=== PATIENT | female | born 1965 | race Caucasian/White ===

== ENCOUNTER 2021-07-13 14:02 | Outpatient (REF) | payer OTHER, SELFPAY ==
--- NOTE | ~2021-07-13 | XR_ITS ---
EXAMINATION: XR KNEE, LEFT CLINICAL INFORMATION: Left knee pain. COMPARISON: None TECHNIQUE: AP, lateral, and sunrise views of the left knee. FINDINGS: Mild medial compartment joint space narrowing. Tiny medial and patellofemoral compartment marginal osteophytes. No osseous erosion. No abnormal soft tissue calcification. No significant joint effusion. XR/XR knee LT 3V IMPRESSION: Mild medial and patellofemoral compartment osteoarthritis.
== END 2021-07-13 14:03 | disposition home or self-care (01) ==
LOC: HO.HMGCX 14:02
PROVIDERS: PCP Internal Medicine; Visit Provider Physician Assistant Medical
DX: M25.562 Pain in left knee (principal)
CPT/HCPCS: 73562

== ENCOUNTER 2022-01-19 06:51 | Outpatient (REF) | payer OTHER, SELFPAY ==
[2022-01-19 07:03] LABS: MANUAL DIFF FLAG NO
[2022-01-19 07:32] LABS: Basophils Absolute Auto 0.1 X10*3/uL (0.0-0.2); Basophils Percent Auto 0.7 % (0-2); Eosinophils Absolute Auto 0.3 X10*3/uL (0.0-0.4); Eosinophils Percent Auto 3.7 % (0-4); Hemoglobin 13.1 g/dl (12.0-16.0); Imm Gran Abs Auto 0.01 X10*3/uL (0.00-0.03); Imm Gran Pct Auto 0.1 % (0.0-0.4); Lymphocytes Absolute Auto 2.6 X10*3/uL (1.2-4.9); Lymphocytes Percent Auto 36.4 % (20-40); Mean Corpuscular Hemoglobin 28.4 pg (27.0-33.0); Mean Corpuscular Volume 88.7 fL (80.0-98.0); Mean Platelet Volume 8.9 fL (9.4-12.3); Monocytes Absolute Auto 0.8 X10*3/uL (0.1-1.2); Neutrophils Absolute Auto 3.4 x10*3/uL (2.0-8.3); Neutrophils Percent Auto 48.1 % (45-73); Platelet Count 288 X10*3/uL (160-400); Red Blood Count 4.62 X10*6/uL (4.20-5.50); Red Cell Distribution Width 13.4 % (11.0-16.0); White Blood Count 7.1 X10*3/uL (4.8-10.8)
[2022-01-19 08:01] LABS: Alanine Aminotransferase 39 U/L (0-31); Albumin Level 4.4 g/dL (3.5-5.0); Alkaline Phosphatase 65 U/L (39-117); Anion Gap 15 (12-20); Aspartate Amino Transferase 30 U/L (5-31); Bilirubin Total 0.5 mg/dL (0.0-1.0); Blood Urea Nitrogen 15 mg/dL (9-16); C Reactive Protein 1.02 mg/dL (< or = 0.50); Carbon Dioxide 27 mmol/L (22-29); Chloride 104 mmol/L (96-108); Cholesterol 177 mg/dL; Estimated Glomerular Filt Rate > 60; Glucose Fasting 101 mg/dL (60-99); HDL Cholesterol 39 mg/dL; LDL Cholesterol Calculated 116 mg/dl; Potassium 4.6 mmol/L (3.3-5.1); Sodium 141 mmol/L (135-145); Total Protein 7.4 g/dL (6.5-8.0); Triglycerides 112 mg/dL
[2022-01-19 08:10] LABS: Appearance Urine CLEAR; Color Urine YELLOW; Glucose Urine UA NEG (NEG); Leukocyte Esterase Urine TRACE (NEG); Nitrite Urine NEG (NEG); PH 5.5 (5.0-8.0); Specific Gravity - Urine >= 1.030 (1.005-1.025); UACC Culture Trigger YES; Urine Blood NEG (NEG); Urine Ketones 5 MG/DL (NEG); Urine Protein NEG (NEG-TRACE)
[2022-01-19 08:10] LABS: Rheumatoid Factor < 15.0 IU/mL (<15.0)
[2022-01-19 08:16] LABS: Erythrocyte Sedimentation Rate 14 MM/HR (0-20)
[2022-01-19 08:23] LABS: TSH reflex Free T4 1.72 uIU/mL (0.32-4.0); Vitamin D 25-OH Total 19.6 ng/mL (>30)
[2022-01-19 08:32] LABS: Squamous Epithelial Cell Urine 2+ /LPF
[2022-01-19 08:34] LABS: Bacteria Urine TRACE /LPF; RBC Urine 0 /HPF (0)
== END 2022-01-19 06:52 | disposition home or self-care (01) ==
LOC: HO.LAB 06:51
PROVIDERS: PCP Internal Medicine; Visit Provider Internal Medicine
DX: Z00.00 Encounter for general adult medical examination without abnormal findings (principal); E66.01 Morbid (severe) obesity due to excess calories; Z68.42 Body mass index [BMI] 45.0-49.9, adult; M17.12 Unilateral primary osteoarthritis, left knee; M25.50 Pain in unspecified joint; M79.7 Fibromyalgia; E55.9 Vitamin D deficiency, unspecified
CPT/HCPCS: 36415; 80053; 80061; 81001; 82306; 84443; 85025; 85652; 86140; 86431; 87086; 87147

== ENCOUNTER 2022-03-20 07:00 | Outpatient (RCR) | payer OTHER, SELFPAY ==
[2022-03-01 07:09] VITALS: BP 141/70; PULSE 72; O2SAT 98
== END 2022-04-26 08:22 | disposition home or self-care (01) ==
LOC: HO.PT 07:00
PROVIDERS: PCP Internal Medicine; Visit Provider Orthopaedic Surgery
DX: M17.12 Unilateral primary osteoarthritis, left knee (principal)
CPT/HCPCS: 97110; 97140; 97161

== ENCOUNTER 2023-03-22 04:20 | Emergency (ER) | payer OTHER, SELFPAY ==
[2023-03-22 04:35] VITALS: BP 155/71; PULSE 78; RESP 16; TEMP 36.6; O2SAT 99; BMI 45.6
--- NOTE | 2023-03-22 04:44 | PC.NURSE ---
patient came in the ER stated she was taking antibiotics for the right ear pain patient vitals are stable at this time patient stated the medication did not help patient is waiting to be seen by the doctor safety will be maintained
--- NOTE | 2023-03-22 04:53 | ED_ITS ---
HPI - Ear Problem General Chief complaint: Ear Problems Stated complaint: ear infection? swollen ear and neck area Time Seen by Provider: 03/22/23 04:53 Source: patient Mode of arrival: ambulatory Limitations: no limitations History of Present Illness HPI Narrative: Patient with history of psoriasis noted redness of the right ear pinna for 3 days seen the PCP was started on amoxicillin comes as pain is more and now swelling increased the lymph nodes no fever no chills no history of similar infection in the past Related Data Previous Rx's Medication Instructions Recorded amoxicillin 500 mg tablet 500 mg PO Q8H 7 days #21 tabs 03/20/23 mupirocin 2 % topical ointment 1 appl topical BID 15 days #15 03/20/23 grams ciprofloxacin HCl 500 mg tablet 500 mg PO BID #20 tabs 03/22/23 (Cipro) doxycycline hyclate 100 mg tablet 100 mg PO BID #20 tabs 03/22/23 ibuprofen 600 mg tablet 600 mg PO Q6H PRN fever or pain 03/22/23 #30 tabs Allergies Allergy/AdvReac Type Severity Reaction Status Date / Time Adhesive Bandage AdvReac Unknown STERI Uncoded 03/20/23 14:04 STRIPS TOPICAL REACTION Review of Systems Review of Systems: Yes all other systems are reviewed and are negative PMFSH Past Medical History Medical History Degenerative joint disease of left knee Insomnia Morbid obesity with BMI of 45.0-49.9, adult Psoriasis Surgical History History of S/P tonsillectomy and adenoidectomy Family History Family History Mother COPD (chronic obstructive pulmonary disease) High blood pressure Father Alcoholic Other Substance abuse Social History Social History Housing: House Alcohol intake: never Patient Tobacco Use Status: Never used Tobacco Smoked in Last 30 Days: No e-Cigarette/Vaping Use: Never Used Second Hand Smoke Exposure: No Use of substances other than those prescribed or required for medical reasons: No Advance Directives: No Advance Directives Information Provided: Yes Patient : No service: No Current occupational status: employed Cognitive needs: No Hearing needs: No Vision needs: Yes Physical Exam Vital Signs: Vital Signs: Last Vital Signs Temp 97.9 F 03/22/23 04:35 Pulse 78 03/22/23 04:35 Resp 16 03/22/23 04:35 BP 155/71 H 03/22/23 04:35 Pulse Ox 99 03/22/23 04:35 O2 Del Method Room Air 03/22/23 04:35 BMI result Body Mass Index 45.6 Appearance: Alert. Oriented X3. No acute distress. ENT: Pharynx normal. Oral Mucosa moist cellulitic right pinna no open wound Neck: Normal inspection. Neck supple. Upper cervical lymph nodes present on the right side CVS: Normal heart rate and rhythm. Pulses normal. Respiratory: No respiratory distress. Equal air entry bilateral, Abdomen: Soft and nontender. Bowel sounds are present, Skin: Skin warm and dry. Normal skin color. Normal skin turgor. Extremities: No lower extremity edema. No calf tenderness Neuro: Oriented X 3. Medications Administered Discontinued Medications Generic Name Dose Route Start Last Admin Trade Name Freq PRN Reason Stop Dose Admin Piperacillin Sod/Tazobactam 50 mls @ 100 mls/hr 03/22/23 04:58 03/22/23 05:50 Sod 3.375 gm/ Sodium Chloride IV 03/22/23 05:27 Infused ONCE ONE Infusion Medical Decision Making Medical Decision Making [facility] Narrative: Patient with perichondritis IV Zosyn was given likely Pseudomonas infection open wound will discharge patient home on Cipro Lab Data [facility] Lab Attestation statement: I reviewed the patient's lab results. 03/22/23 05:14 03/22/23 05:14 Labs: Lab Results 03/22/23 03/22/23 Range/Units 05:14 05:14 WBC 10.6 (4.8-10.8) X10*3/uL RBC 4.56 (4.20-5.50) X10*6/uL Hgb 12.8 (12.0-16.0) g/dl Hct 39.8 (37.0-47.0) % MCV 87.3 (80.0-98.0) fL MCH 28.1 (27.0-33.0) pg MCHC 32.2 (31.0-35.0) g/dl RDW 13.2 (11.0-16.0) % Plt Count 285 (160-400) X10*3/uL MPV 8.4 L (9.4-12.3) fL Immature Gran % (Auto) 0.5 H (0.0-0.4) % Neut % (Auto) 59.2 (45-73) % Lymph % (Auto) 26.4 (20-40) % [place] % (Auto) 11.9 H (2-11) % Eos % (Auto) 1.6 (0-4) % Baso % (Auto) 0.4 (0-2) % Lymph # (Auto) 2.8 (1.2-4.9) X10*3/uL [place] # (Auto) 1.3 H (0.1-1.2) X10*3/uL Eos # (Auto) 0.2 (0.0-0.4) X10*3/uL Baso # (Auto) 0.0 (0.0-0.2) X10*3/uL Abs Immat Gran (auto) 0.05 H (0.00-0.03) X10*3/uL Absolute Neuts (auto) 6.3 (2.0-8.3) x10*3/uL Absolute Nucleated RBC 0.000 (0.0-0.012) X10*3/uL Nucleated RBC % (auto) 0.0 (0.0-0.2) /100WBC Sodium 141 (135-145) mmol/L Potassium 4.5 (3.3-5.1) mmol/L Chloride 105 (96-108) mmol/L Carbon Dioxide 27 (22-29) mmol/L Anion Gap 14 (12-20) BUN 14 (9-16) mg/dL Creatinine 0.76 (0.5-1.4) mg/dL Estim Creat Clear Calc 125.0 Estimated GFR > 60 Random Glucose 96 (60-115) mg/dL Calcium 9.5 (8.4-10.2) mg/dL Discharge Plan Discharge Clinical Impression: Acute perichondritis of right external ear Patient Disposition: Home, Self-Care Instructions: Cellulitis (ED) Additional Instructions: You have infection of the skin of the right ear take antibiotic as prescribed Report to the ER if worsening of the redness or swelling and pain Prescriptions: New ciprofloxacin HCl [Cipro] 500 mg tablet 500 mg PO BID Qty: 20 0RF doxycycline hyclate 100 mg tablet 100 mg PO BID Qty: 20 0RF ibuprofen 600 mg tablet 600 mg PO Q6H PRN (Reason: fever or pain) Qty: 30 0RF No Action amoxicillin 500 mg tablet 500 mg PO Q8H 7 Days Qty: 21 0RF mupirocin 2 % ointment 1 appl topical BID 15 Days Qty: 15 0RF Interventions: ED Discharge Assessment Last Done: 03/22/23 06:08
[2023-03-22 05:18] LABS: Basophils Percent Auto 0.4 % (0-2); Eosinophils Absolute Auto 0.2 X10*3/uL (0.0-0.4); Eosinophils Percent Auto 1.6 % (0-4); Hematocrit 39.8 % (37.0-47.0); Hemoglobin 12.8 g/dl (12.0-16.0); Imm Gran Abs Auto 0.05 X10*3/uL (0.00-0.03); Imm Gran Pct Auto 0.5 % (0.0-0.4); Lymphocytes Absolute Auto 2.8 X10*3/uL (1.2-4.9); Lymphocytes Percent Auto 26.4 % (20-40); MANUAL DIFF FLAG NO; Mean Corpuscular HGB Conc 32.2 g/dl (31.0-35.0); Mean Corpuscular Hemoglobin 28.1 pg (27.0-33.0); Mean Corpuscular Volume 87.3 fL (80.0-98.0); Mean Platelet Volume 8.4 fL (9.4-12.3); Monocytes Absolute Auto 1.3 X10*3/uL (0.1-1.2); Monocytes Percent Auto 11.9 % (2-11); Neutrophils Absolute Auto 6.3 x10*3/uL (2.0-8.3); Neutrophils Percent Auto 59.2 % (45-73); Platelet Count 285 X10*3/uL (160-400); Red Blood Count 4.56 X10*6/uL (4.20-5.50); Red Cell Distribution Width 13.2 % (11.0-16.0); White Blood Count 10.6 X10*3/uL (4.8-10.8)
[2023-03-22] MEDS: Piperacillin Sodium/Tazobactam 3.375 GM in 0.9 % Sodium Chloride 50 ML IV (05:19)
[2023-03-22 05:29] LABS: Anion Gap 14 (12-20); Blood Urea Nitrogen 14 mg/dL (9-16); Calcium 9.5 mg/dL (8.4-10.2); Carbon Dioxide 27 mmol/L (22-29); Chloride 105 mmol/L (96-108); Estimated Glomerular Filt Rate > 60; Glucose Random 96 mg/dL (60-115); Potassium 4.5 mmol/L (3.3-5.1); Sodium 141 mmol/L (135-145)
--- NOTE | 2023-03-22 05:29 | PC.NURSE ---
patient received antibiotics by IV patient will continue to be monitored for safety
== END 2023-03-22 06:11 | disposition home or self-care (01) ==
PROVIDERS: Emergency Provider Internal Medicine
DX: H61.011 Acute perichondritis of right external ear (principal); Z79.899 Other long term (current) drug therapy
CPT/HCPCS: 36415; 80048; 85025; 96365; 99284; J2543

== ENCOUNTER 2023-03-26 07:36 | Outpatient (REF) | payer OTHER, SELFPAY ==
[2023-03-26 10:31] LABS: Hematocrit 41.7 % (37.0-47.0); Mean Corpuscular HGB Conc 31.2 g/dl (31.0-35.0); Mean Corpuscular Hemoglobin 27.5 pg (27.0-33.0); Mean Corpuscular Volume 88.3 fL (80.0-98.0); Mean Platelet Volume 8.9 fL (9.4-12.3); Platelet Count 340 X10*3/uL (160-400); Red Blood Count 4.72 X10*6/uL (4.20-5.50); Red Cell Distribution Width 13.2 % (11.0-16.0); White Blood Count 8.2 X10*3/uL (4.8-10.8)
[2023-03-26 10:44] LABS: Alanine Aminotransferase 23 U/L (0-31); Alkaline Phosphatase 60 U/L (39-117); Anion Gap 15 (12-20); Aspartate Amino Transferase 23 U/L (5-31); Bilirubin Total 0.5 mg/dL (0.0-1.0); Blood Urea Nitrogen 18 mg/dL (9-16); Calcium 10.2 mg/dL (8.4-10.2); Carbon Dioxide 27 mmol/L (22-29); Chloride 105 mmol/L (96-108); Cholesterol 182 mg/dL; Estimated Glomerular Filt Rate > 60; Glucose Fasting 94 mg/dL (60-99); HDL Cholesterol 42 mg/dL; LDL Cholesterol Calculated 117 mg/dl; Potassium 4.6 mmol/L (3.3-5.1); Sodium 142 mmol/L (135-145); Total Protein 7.5 g/dL (6.5-8.0); Triglycerides 115 mg/dL
== END 2023-03-26 07:37 | disposition home or self-care (01) ==
LOC: HO.10HDL 07:36
PROVIDERS: PCP Internal Medicine; Visit Provider Physician Assistant
DX: Z13.1 Encounter for screening for diabetes mellitus (principal); E78.9 Disorder of lipoprotein metabolism, unspecified
CPT/HCPCS: 36415; 80053; 80061; 85027

== ENCOUNTER 2024-01-09 09:10 | Outpatient (AMB) | payer OTHER, SELFPAY ==
--- NOTE | 2024-01-09 09:19 | A.OFFPC_ITS ---
Vital Signs 01/09/24 09:20 Height 5 ft 9 in Weight 255 lb 4 oz BMI 37.7 BP 120/74 Blood Pressure Location Lt brachial Position Sitting Pulse 70 Pulse Source Pulse Oximeter Pulse Oximetry (%) 100 Oxygen Delivery Method Room Air Intake Visit Reasons: Annual PE Intake Note: Patient is here today for a physical. Reproduction Production Manager Required: No Stripper Preliminary: Not Required per policy Accompanied by: Self / Same As Patient Allergies Adhesive Bandage Adverse Reaction (Unknown, Uncoded 01/09/24 09:45) STERI STRIPS TOPICAL REACTION Medication List - Last Reconciled 01/09/24 by Pedro Luis Field MD semaglutide 0.5 mg subcut QWEEK Tobacco use date assessed: 01/09/24 Dental Screening Dental Screen Date: 01/09/24 Did you have a dental visit in the last 12 months?: Yes Did you have a dental problem in the last 6 months where you did not have access to dental care?: No Was dental information given to patient?: Patient has dentist HPI Annual PE HPI Details Patient comes in today for her annual physical examination States that she currently feels okay She denies any headaches or dizziness Denies any chest pains, no SOB No nausea/vomiting, no abdominal pain No change in bowel habits noted Denies any acute urinary symptoms Patient has lost a lot of weight since her last physical exam about a year ago States that she has been going to [facility] for Functional Medicine at [facility] and they started her on Semaglutide SQ injection once a week to help her lose weight States that her previous left knee pain and swelling have subsided / improved a lot since she lost weight and at this time, she does not feel that she needs to go ahead with the joint replacement surgery that orthopedics was planning for last year She is up-to-date with her annual gynecology exam - last had it done in September 2023 and she goes to her mobile application architect at [facility] in [place] She had her mammogram last done at [facility] in August 2023 Had her colonoscopy last done in [address] Lloyd and states that she was recently contacted by Dr. Lloyd' office to schedule her appointment as she is due for her repeat colonoscopy [facility] Medical History (Updated 01/09/24 @ 10:48 by Pedro Luis Field MD) Obesity (BMI 30-39.9) Insomnia Psoriasis Degenerative joint disease of left knee Morbid obesity with BMI of 45.0-49.9, adult Surgical History (Updated 01/09/24 @ 09:59 by Pedro Luis Field MD) History of colonoscopy History of S/P tonsillectomy and adenoidectomy Family History Mother COPD (chronic obstructive pulmonary disease) High blood pressure Father Alcoholic Other Substance abuse Social History Housing: House Alcohol intake: never Patient Tobacco Use Status: Never used Tobacco e-Cigarette/Vaping Use: Never Used Second Hand Smoke Exposure: No service: No Current occupational status: employed Cognitive needs: No Hearing needs: No Vision needs: Yes (Glasses) Questionnaire PHQ-9 Over the last 2 weeks, how often have you been bothered by any of the following problems? 1. Little interest or pleasure in doing things: not at all 2. Feeling down, depressed, or hopeless: not at all 3. Trouble falling or staying asleep, or sleeping too much: not at all 4. Feeling tired or having little energy: not at all 5. Poor appetite or overeating: not at all 6. Feeling bad about yourself - or that you are a failure or have let yourself or your family down: not at all 7. Trouble concentrating on things, such as reading the newspaper or watching television: not at all 8. Moving or speaking so slowly that other people could have noticed. Or the opposite - being so fidgety or restless that you have been moving around a lot more than usual: not at all 9. Thoughts that you would be better off or of hurting yourself in some way: not at all Total score: 0 Depression Screening Interpretation: Negative Depression Screening Done: Yes 26753 - PHQ-9 Billing: Yes Source: Developed by Drs. Benson Wise, Hodan Malhotra, Haider Maria and colleagues, with an educational sharon from [employer]. Thrive Questionnaire Date Thrive assessed: 01/09/24 I am a: Patient What is your living situation today?: I have a steady place to live Within the past 12 months, did the food you bought not last and you didn't have the money to get more?: Never true Within the past 12 months, did you worry whether your food would run out before you got money to buy more?: Never true Do you have trouble paying for medicines?: No Do you have trouble getting transportation to medical appointments?: No Do you have trouble paying your heating and electricity bill?: No Do you have trouble taking care of your child, family member or friend?: No Do you have trouble with day-to-day activities such as bathing, preparing meals, shopping, managing finances, etc.?: No Are you currently unemployed and looking for a job?: No Are you interested in more education?: No Currently or been in a relationship where the following occur: no concerns reported THRIVE Score: 0 AUDIT C Alcohol Use Questionnaire (AUDIT-C) 1. How often do you have a drink containing alcohol?: Never 3. How often do you have six or more drinks on one occasion?: Never Total Score: 0 Score Reviewed/Action Taken: Yes CHICHI-7 AMB Questionnaire CHICHI-7 Date CHICHI - 7 assessed: 01/09/24 Feeling nervous, anxious, or on edge: 0 = Not at all Not being able to stop or control worryin = Not at all Worrying too much about different things: 0 = Not at all Trouble relaxin = Not at all Being so restless that it is hard to sit still: 0 = Not at all Becoming easily annoyed or irritable: 0 = Not at all Feeling afraid as if something awful might happen: 0 = Not at all Total CHICHI-7 score (0-4 normal; 5-9 mild; 10-14 moderate; 15-21 severe): 0 Source: Developed by Drs. Benson Wise, Hodan Malhotra, Haider Maria and colleagues, with an educational sharon from [employer]. Review of Systems Const Denies chills, Denies fatigue, Denies fever(s), Denies headache(s) and Denies malaise Eyes Denies blurry vision, Denies change in vision, Denies irritation and Denies itchy eyes ENT Denies dysphagia, Denies dizziness, Denies otalgia, Denies headache(s), Denies nasal congestion, Denies neck pain, Denies odynophagia, Denies sinus pain and Denies sore throat Card Denies chest pain, Denies rapid heart rate, Denies irregular heart rhythm, Denies palpitations and Denies dyspnea Resp Denies chest congestion, Denies cough, Denies dyspnea and Denies wheezing GI Denies abdominal pain, Denies bloating, Reports constipation (on and off - takes OTC stool softener when needed), Denies dysphagia, Denies heartburn, Denies diarrhea, Denies nausea, Denies odynophagia and Denies vomiting Denies hematuria, Denies urinary frequency, Denies dysuria, Denies urinary incontinence and Denies urinary urgency Musc Denies back pain, Reports arthralgias (left knee), Denies joint swelling, Denies muscle weakness and Denies neck pain Skin/Breast Denies breast pain, Denies breast mass, Denies change in pigmentation, Denies lesions, Denies rash and Denies unusual bruising Neuro Denies dizziness, Denies headache(s) and Denies paresthesias Psych Denies anxiety and Denies depression Endo Denies fatigue and Denies palpitations Orion/Lymph Denies easy bruising Aller/Immun Denies itchy eyes and Denies wheezing Physical exam (Primary Care) Vital Signs: Last Vital Signs Pulse 70 01/09/24 09:20 BP 120/74 01/09/24 09:20 Pulse Ox 100 01/09/24 09:20 Oxygen Delivery Method Room Air 01/09/24 09:20 BMI result Body Mass Index 37.7 Tobacco/Smoking Status: Tobacco use Status Tobacco use date assessed 01/09/24 01/09/24 09:26 Patient Tobacco Use Status Never used Tobacco 01/09/24 09:26 e-Cigarette/Vaping Use Never Used 01/09/24 09:26 PHQ-9: PHQ-9 Score PHQ-9: Total score 0 01/09/24 09:57 Depression Screening Interpretation: Negative Thrive Assessment: Date of Thrive Assessment Date Thrive assessed 01/09/24 01/09/24 09:26 Currently or been in a relationship where the following occur: no concerns reported Const General: no acute distress, alert and awake Orientation/consciousness: patient oriented x3 HENMT Head: Yes normocephalic and Yes atraumatic Ears: external ears normal, TM's normal bilaterally and EAC's normal General nose exam: No nasal discharge present Face and sinus: Yes normal facial exam and Yes sinuses nontender Teeth and gingiva: dentition normal Throat: Yes posterior oropharynx normal and Yes tonsils normal (no TP laith estion) Eyes Eyelids: Yes eyelids normal Conjunctivae: conjunctivae normal Pupils: Equal, round and reactive pupils present EOM: EOMs intact bilaterally Neck Neck: Yes no lymphadenopathy and Yes supple Thyroid: Thyroid normal Resp Auscultation: clear to auscultation bilaterally, no rales and no wheezes Cardio Rate: regular rate Rhythm: regular rhythm Heart sounds: no murmurs GI Palpation (GI): Soft to palpation, nontender and No hepatosplenomegaly present Auscultation: normal bowel sounds General: Yes no CVA tenderness Back/Spine/Pelvis Back: no CVA tenderness Thoracic/Lumbar Spine: thoracic and lumbar spine normal to inspection Skin Lesions: no lesions Rashes: no rashes Neuro General: patient oriented x3, moves all extremities, no focal motor deficits and CN's II-XI intact bilaterally Cranial nerves: Yes Equal, round and reactive pupils present Cognition (Neuro): normal cognition Gait exam (Neuro): Normal gait present Extrem General: Yes no clubbing, cyanosis or edema Left lower extremity: knee Details: tenderness and normal ROM; no swelling Assessment and Plan Assessment & Plan (1) Annual physical exam: Code(s): Z00.00 - Encounter for general adult medical examination without abnormal findings Plan: Check labs She is currently up-to-date with her breast and cervical cancer screenings and is scheduled to see Dr. Lloyd in May 2024 for her repeat colonoscopy (2) Degenerative joint disease of left knee: Code(s): M17.12 - Unilateral primary osteoarthritis, left knee Qualifiers: Osteoarthritis type: unspecified Qualified Code(s): M17.12 - Unilateral primary osteoarthritis, left knee Plan: She was previously recommended by orthopedics to continue with conservative management She was getting viscosupplementation and cortisone injectison from orthopedics previously but she reports (+) significant reduction of her knee symptoms and pain with her weight loss over the past year and at this time, does not feel that she needs anything other than symptomatic and conservative Tx for now Follow up with orthopedics ([facility]) as scheduled (3) Elevated blood pressure reading in office without diagnosis of hypertension: Code(s): R03.0 - Elevated blood-pressure reading, without diagnosis of hypertension Plan: Reinforced low sodium diet Her blood pressure also appears to have improved significantly with her weight loss Patient is reminded to continue monitoring her blood pressure regularly (4) Psoriasis: Code(s): L40.9 - Psoriasis, unspecified Plan: Follow up with [facility] as scheduled Recalls being treated with Methotrexate, Humira and Otezla in the past but she is currently not on any Rx (5) Insomnia: Code(s): G47.00 - Insomnia, unspecified Qualifiers: Insomnia type: unspecified Qualified Code(s): G47.00 - Insomnia, unspecified Plan: Sleep hygiene reinforced States that she takes some OTC Benadryl PRN (6) Obesity (BMI 30-39.9): Code(s): E66.9 - Obesity, unspecified Plan: Reinforced diet/exercise as tolerated/lose weight She has been able to lose over 50 pounds since I saw her a year ago - states that she has been going to the [facility] for Functional Medicine at [facility] and they started her on Semaglutide SQ injection once a week to help her lose weight a few months ago and she is currently still on it Is requesting if possible for us to take over her Rx once she gets all of the details and information required - states that she will be using a compounding pharmacy somewhere here in [facility] and will try to get more information on this for us Plan Follow up in 6 months Orders: Orders Complete Blood Count Auto Diff Today D64.9 - Anemia, unspecified, Z00.00 - Encounter for general adult medical examination without abnormal findings Comprehensive Fellows. Panel Fast Today E78.00 - Pure hypercholesterolemia, unspecified, Z00.00 - Encounter for general adult medical examination without abnormal findings Lipid Panel Today E78.00 - Pure hypercholesterolemia, unspecified, Z00.00 - Encounter for general adult medical examination without abnormal findings TSH reflex Free T4 Today E78.00 - Pure hypercholesterolemia, unspecified, Z00.00 - Encounter for general adult medical examination without abnormal findings UA CC w/rflx Micro + Cult Today R30.0 - Dysuria, Z00.00 - Encounter for general adult medical examination without abnormal findings Vitamin D 25-OH Total Today E55.9 - Vitamin D deficiency, unspecified, Z00.00 - Encounter for general adult medical examination without abnormal findings Coding Level of Care Code Est Pt Prev Care [id number]([id number]) Diagnoses Annual physical exam Z00.00 Osteoarthritis of left knee, unspecified osteoarthritis type M17.12 Osteoarthritis type: unspecified Elevated blood pressure reading in office without diagnosis of hypertension R03.0 Psoriasis L40.9 Insomnia, unspecified type G47.00 Insomnia type: unspecified Obesity (BMI 30-39.9) E66.9
[2024-01-09 09:20] VITALS: BP 120/74; PULSE 70; O2SAT 100; BMI 37.7
== END 2024-01-09 10:10 | disposition home or self-care (01) ==
PROVIDERS: PCP Internal Medicine; Visit Provider Internal Medicine
DX: Z00.00 Encounter for general adult medical examination without abnormal findings (principal); M17.12 Unilateral primary osteoarthritis, left knee; R03.0 Elevated blood-pressure reading, without diagnosis of hypertension; L40.9 Psoriasis, unspecified; G47.00 Insomnia, unspecified
CPT/HCPCS: 99396

== ENCOUNTER 2024-01-10 08:39 | Outpatient (REF) | payer OTHER, SELFPAY ==
[2024-01-10 10:49] LABS: MANUAL DIFF FLAG NO
[2024-01-10 10:51] LABS: Basophils Absolute Auto 0.1 X10*3/uL (0.0-0.2); Basophils Percent Auto 0.7 % (0-2); Eosinophils Absolute Auto 0.2 X10*3/uL (0.0-0.4); Eosinophils Percent Auto 1.9 % (0-4); Hematocrit 41.1 % (37.0-47.0); Hemoglobin 13.2 g/dl (12.0-16.0); Imm Gran Abs Auto 0.02 X10*3/uL (0.00-0.03); Imm Gran Pct Auto 0.2 % (0.0-0.4); Lymphocytes Absolute Auto 3.2 X10*3/uL (1.2-4.9); Lymphocytes Percent Auto 30.9 % (20-40); Mean Corpuscular HGB Conc 32.1 g/dl (31.0-35.0); Mean Corpuscular Hemoglobin 28.1 pg (27.0-33.0); Mean Corpuscular Volume 87.4 fL (80.0-98.0); Mean Platelet Volume 8.8 fL (9.4-12.3); Monocytes Absolute Auto 1.1 X10*3/uL (0.1-1.2); Monocytes Percent Auto 10.9 % (2-11); Neutrophils Absolute Auto 5.7 x10*3/uL (2.0-8.3); Neutrophils Percent Auto 55.4 % (45-73); Platelet Count 321 X10*3/uL (160-400); Red Cell Distribution Width 13.2 % (11.0-16.0); White Blood Count 10.3 X10*3/uL (4.8-10.8)
[2024-01-10 10:58] LABS: Appearance Urine Clear; Color Urine Yellow; Glucose Urine UA Negative (Negative); Leukocyte Esterase Urine Large (3+) (Negative); Nitrite Urine Negative (Negative); PH 6.5 (5.0-9.0); UMIC TRIGGER UACC YES; Urine Blood Trace (Negative); Urine Ketones Negative (Negative); Urine Protein Negative (Neg-Trace)
[2024-01-10 11:19] LABS: Alanine Aminotransferase 14 U/L (0-31); Albumin Level 4.3 g/dL (3.5-5.0); Alkaline Phosphatase 59 U/L (39-117); Anion Gap 10 (12-20); Aspartate Amino Transferase 16 U/L (5-31); Bilirubin Total 0.4 mg/dL (0.0-1.0); Blood Urea Nitrogen 16 mg/dL (9-16); Calcium 9.4 mg/dL (8.4-10.2); Carbon Dioxide 29 mmol/L (22-29); Chloride 105 mmol/L (96-108); Cholesterol 177 mg/dL (<200); Estimated Glomerular Filt Rate > 60; Glucose Fasting 89 mg/dL (60-99); HDL Cholesterol 53 mg/dL (>40); LDL Cholesterol Calculated 103 mg/dL (<100); Potassium 4.2 mmol/L (3.3-5.1); Sodium 140 mmol/L (135-145); Total Protein 7.5 g/dL (6.5-8.0); Triglycerides 105 mg/dL (<150)
[2024-01-10 11:29] LABS: Bacteria Urine None Seen (None Seen); Hyaline Casts Urine 0-2 /LPF (0-2); UACC Culture Trigger YES
[2024-01-10 11:35] LABS: Vitamin D 25-OH Total 24.1 ng/mL (>30)
== END 2024-01-10 08:40 | disposition home or self-care (01) ==
LOC: HO.10HDL 08:39
PROVIDERS: Visit Provider Internal Medicine
DX: Z00.00 Encounter for general adult medical examination without abnormal findings (principal); E55.9 Vitamin D deficiency, unspecified; E78.00 Pure hypercholesterolemia, unspecified; D64.9 Anemia, unspecified; R30.0 Dysuria
CPT/HCPCS: 36415; 80053; 80061; 81001; 81003; 82306; 84443; 85025; 87086

== ENCOUNTER 2024-03-09 14:11 | Emergency (ER) | payer OTHER, SELFPAY ==
[2024-03-09 14:23] VITALS: BP 140/86; PULSE 67; RESP 20; TEMP 35.9; O2SAT 100; BMI 36.8
--- NOTE | 2024-03-09 14:34 | ED.GENADULT ---
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 She endorses anaphylactic reaction to bee stings. Her last reaction was years ago. Reports bee sting to the top of her right 3rd toe with immediate swelling noted to the toe today. She began to feel the swelling traveling up her right leg and became panicked, prompting her to come in for evaluation. Reports taking two benadryl prior to arrival. She did not use her epi pen. Patient initially evaluated in triage and given a dose of prednisone. On my initial evaluation, patient states that she is completely asymptomatic at present. Denies throat closing sensation, tongue swelling, rash, chest pain, dsypnea, wheezing. Reports improvement to her toe/ leg swelling and is requesting to go home. Related Data Home Medications ?Medication ?Instructions ?Recorded ?Confirmed semaglutide 0.25 mg or 0.5 mg (2 0.5 mg subcut QWEEK 01/09/24 01/09/24 mg/3 mL) subcutaneous pen injector Previous Rx's ?Medication ?Instructions ?Recorded famotidine 20 mg tablet (Pepcid) 20 mg PO DAILY 3 days #3 tabs 03/09/24 prednisone 20 mg tablet 20 mg PO DAILY 4 days #4 tabs 03/09/24 Allergies Allergy/AdvReac Type Severity Reaction Status Date / Time bee pollen [bee stings] Allergy Anaphylaxis Verified 03/09/24 14:25 Adhesive Bandage AdvReac Unknown STERI Uncoded 01/09/24 09:45 STRIPS TOPICAL REACTION Review of Systems Review of Systems: Constitutional: No fever, chills, fatigue, night sweats, weight changes ENT/Mouth: No ear pain, hearing loss, nasal congestion, sinus pain, rhinorrhea, sore throat Eyes: No eye pain, swelling, redness, vision changes, discharge Cardio: No chest pain, palpitations, MCINTOSH, orthopnea, peripheral edema Pulm: No SOB, cough, sputum, wheezing, dyspnea, hemoptysis GI: No nausea, vomiting, hematemesis, abdominal pain, diarrhea, constipation, hematochezia, melena : No irregular bleeding, dysuria, frequency, urgency, hesitancy, hematuria, flank pain, urinary flow changes, urinary incontinence or retention MSK: No back pain, neck pain, joint pain, myalgias Skin: No lesions, rashes Neuro: No weakness, numbness, paresthesias, LOC, dizziness, headache Psych: No anxiety/panic, depression, SI/HI, AH/VH All other systems reviewed and are negative. [facility] Past Medical History Attestation statement: The following information was validated with the patient. Source: old records reviewed and nursing notes reviewed Medical History Obesity (BMI 30-39.9) Insomnia Psoriasis Degenerative joint disease of left knee Morbid obesity with BMI of 45.0-49.9, adult Surgical History History of colonoscopy History of S/P tonsillectomy and adenoidectomy Family History Family History Mother COPD (chronic obstructive pulmonary disease) High blood pressure Father Alcoholic Other Substance abuse Social History Social History Housing: House Alcohol intake: never Patient Tobacco Use Status: Never used Tobacco e-Cigarette/Vaping Use: Never Used Second Hand Smoke Exposure: No Advance Directives: No Advance Directives Information Provided: No service: No Current occupational status: employed Cognitive needs: No Hearing needs: No Vision needs: Yes (Glasses) Physical Exam ED Vital Signs: Vital Signs - 24 hr 03/09/24 14:23 03/09/24 15:55 03/09/24 17:31 Temperature 96.6 F L 97.9 F 97.9 F Pulse Rate 67 62 62 Respiratory Rate 20 16 16 Blood Pressure 140/86 H 131/65 131/65 Pulse Oximetry 100 96 96 Oxygen Delivery Method Room Air Room Air Room Air BMI result Body Mass Index 36.8 Vital signs stable Const General: cooperative, healthy appearing, comfortable and no acute distress Orientation/consciousness: patient oriented x3 Limitations: no limitations [facility] Head: Yes normal to inspection, Yes No palpable skull fracture present, Yes normocephalic and Yes atraumatic Eyes General: appearance normal, both eyes and all related structures Conjunctivae: conjunctivae normal Sclerae: sclerae normal Pupils: Equal, round and reactive pupils present Neck Neck: Yes normal visual inspection, Yes full ROM and Yes no lymphadenopathy Resp Effort & Inspection: normal respiratory effort, able to speak in complete sentences, no respiratory distress, no stridor and no tripod positioning Auscultation: clear to auscultation bilaterally Cardio Rate: regular rate Rhythm: regular rhythm Skin General skin exam: no rashes or lesions noted Neuro General: patient oriented x3, gait normal and no focal motor deficits Cranial nerves: Yes Equal, round and reactive pupils present Course Course Course Narrative: RME: done by SOURAV Almaraz. 58 yold female presents to the ED for bee sting to right middle toe and starting having SOB immeidatlely and itchy throat. patient has had anyphylaxix reaction to bee stings in the past. Patient took 50mg benadryl immediatlely. patient presently not in distress. lungs clear. oral exam normal. prednisone and pepcid ordered. Reevaluation(s) Reevaluation #1: 0016-- on my initial evaluation, patient well-appearing. There is no swelling noted to her right 3rd toe or her right lower extremity. No tongue or facial edema. No stridor. She is talking in complete sentences. She denies any symptoms at present. She was given a dose of prednisone in triage and she took 2 Benadryl prior to arrival in ED. she has been observed for approximately 3 hours at this point. Patient is requesting discharge home and I am agreeable with this. I feel comfortable discharging patient home with strict return precautions. Pepcid and prednisone sent to pharmacy. Advised her to continue taking Benadryl as needed at home. Patient has remained stable throughout ED visit today. Discussed worrisome signs and symptoms and when to return to the ED. All questions answered at this time. Patient is agreeable with disposition and stable for discharge. 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 VSS. Nontoxic appearing and in NAD. On exam, lungs CTA b/l. no stridor. airway patent. no rashes. RRR. Differential diagnosis includes allergic reaction. Unlikely anaphylaxis, airway compromise. Plan for meds, re-evaluation. Differential Diagnosis Differential Diagnoses: The differential diagnosis associated with the presentation includes as above. Admission/Observation Not indicated External Record Review External record reviewed: Inpatient record, Office record, Outpatient record, Prior outpatient labs, Prior outpatient radiology, Primary care record and Outside ED record Prescription Management I considered prescription management with: Other (Pepcid, Benadryl, prednisone) Social Determinants Patient?s care significantly limited by Social Determinants of Health including: Other Social Determinant of Health Critical Care Time Critical Care Time Critical Care Time: No Discharge Plan Discharge Clinical Impression: Allergic reaction Patient Disposition: Home, Self-Care Instructions: General Allergic Reaction (ED) Additional Instructions: You were seen in the ED today for allergic reaction to bee sting. You took Benadryl at home and was given a dose of prednisone in the ED with improvement in symptoms. You were observed for approximately 3 hours without further reaction. Continue taking Benadryl at home over the next few days. Pepcid has been sent to pharmacy for you to as well. Prednisone has been sent to your pharmacy for you to take for the next 4 days. Begin this medication tomorrow. As discussed, return with new or worsening symptoms such as shortness of breath, difficulty breathing, wheezing, throat closing sensation or chest pain. If you end up using your EpiPen at home make sure to call 911 right away as you will need to be further evaluated. In the case of an emergency call 911. Prescriptions: New famotidine [Pepcid] 20 mg tablet 20 mg PO DAILY 3 Days Qty: 3 0RF prednisone 20 mg tablet 20 mg PO DAILY 4 Days Qty: 4 0RF No Action semaglutide 0.25 mg or 0.5 mg (2 mg/3 mL) pen injector 0.5 mg subcut QWEEK Rx Instructions: for weight loss Interventions: ED Discharge Assessment Last Done: 03/09/24 17:31 Discharge Date/Time: 03/09/24 17:31 Print Language: Turkmen
[2024-03-09] MEDS: predniSONE 20 MG TABLET 60 MG PO (14:38)
[2024-03-09] MEDS: Famotidine 20 MG TABLET PO (14:38)
[2024-03-09 15:55] VITALS: BP 131/65; PULSE 62; RESP 16; TEMP 36.6; O2SAT 96
[2024-03-09 17:31] VITALS: BP 131/65; PULSE 62; RESP 16; TEMP 36.6; O2SAT 96
== END 2024-03-09 17:31 | disposition home or self-care (01) ==
PROVIDERS: Emergency Provider Emergency Medicine; PCP Internal Medicine
DX: T63.441A Toxic effect of venom of bees, accidental (unintentional), initial encounter (principal); Y92.9 Unspecified place or not applicable
CPT/HCPCS: 99283

== ENCOUNTER 2024-07-15 09:41 | Outpatient (AMB) | payer OTHER, SELFPAY ==
--- NOTE | 2024-07-15 09:42 | MHC.PC.OV ---
Vital Signs 07/15/24 09:43 Height 5 ft 9 in Weight 242 lb 2 oz BMI 35.8 BP 124/78 Blood Pressure Location Lt brachial Position Sitting Pulse 71 Pulse Source Pulse Oximeter Pulse Oximetry (%) 99 Oxygen Delivery Method Room Air Intake Visit Reasons: 6mof\u Pumper Head Required: No Accompanied by: Self / Same As Patient Allergies bee pollen [bee stings] Allergy (Verified 07/15/24 10:12) Anaphylaxis Adhesive Bandage Adverse Reaction (Unknown, Uncoded 07/15/24 10:12) STERI STRIPS TOPICAL REACTION Medication List - Last Reconciled 07/15/24 by Pedro Luis Field MD semaglutide 0.5 mg subcut QWEEK Tobacco use date assessed: 07/15/24 Dental Screening Dental Screen Date: 07/15/24 Did you have a dental visit in the last 12 months?: Yes Did you have a dental problem in the last 6 months where you did not have access to dental care?: No Was dental information given to patient?: Patient has dentist HPI 6mof\u HPI Details Patient comes in today for her follow up visit States that she is still having trouble sleeping at night and she feels that this has been getting worse lately She has been taking OTC Benadryl recently to help her sleep at night - states that it helps but she feels very groggy the next morning from the medication and would like to know if there are any better alternatives She is still on Ozempic for weight loss - she has been on the Rx for about 14 months now and she has reportedly lost a total of about 61 pounds so far She denies any headaches or dizziness Denies any chest pains, no SOB No nausea/vomiting, no abdominal pain No change in bowel habits noted She had some follow up labs done back in January 2024 - to discuss her results [facility] Medical History (Updated 07/21/24 @ 09:05 by Pedro Luis Field MD) Obesity, class 1 Vitamin D deficiency Obesity (BMI 30-39.9) Insomnia Psoriasis Degenerative joint disease of left knee Morbid obesity with BMI of 45.0-49.9, adult Surgical History History of colonoscopy History of S/P tonsillectomy and adenoidectomy Family History Mother COPD (chronic obstructive pulmonary disease) High blood pressure Father Alcoholic Other Substance abuse Social History Housing: House Alcohol intake: never Patient Tobacco Use Status: Never used Tobacco e-Cigarette/Vaping Use: Never Used Second Hand Smoke Exposure: No service: No Current occupational status: employed Cognitive needs: No Hearing needs: No Vision needs: Yes (Glasses) Questionnaire PHQ-9 Over the last 2 weeks, how often have you been bothered by any of the following problems? 1. Little interest or pleasure in doing things: not at all 2. Feeling down, depressed, or hopeless: not at all 3. Trouble falling or staying asleep, or sleeping too much: not at all 4. Feeling tired or having little energy: not at all 5. Poor appetite or overeating: not at all 6. Feeling bad about yourself - or that you are a failure or have let yourself or your family down: not at all 7. Trouble concentrating on things, such as reading the newspaper or watching television: not at all 8. Moving or speaking so slowly that other people could have noticed. Or the opposite - being so fidgety or restless that you have been moving around a lot more than usual: not at all 9. Thoughts that you would be better off or of hurting yourself in some way: not at all Total score: 0 Depression Screening Interpretation: Negative Depression Screening Done: Yes 41418 - PHQ-9 Billing: Yes Source: Developed by Drs. Benson Wise, Hodan Malhotra, Haider Maria and colleagues, with an educational sharon from [employer]. Thrive Questionnaire Date Thrive assessed: 07/15/24 I am a: Patient What is your living situation today?: I have a steady place to live Within the past 12 months, did the food you bought not last and you didn't have the money to get more?: Never true Within the past 12 months, did you worry whether your food would run out before you got money to buy more?: Never true Do you have trouble paying for medicines?: No Do you have trouble getting transportation to medical appointments?: No Do you have trouble paying your heating and electricity bill?: No Do you have trouble taking care of your child, family member or friend?: No Do you have trouble with day-to-day activities such as bathing, preparing meals, shopping, managing finances, etc.?: No Are you currently unemployed and looking for a job?: No Are you interested in more education?: No Please select the resources that you would like help with: None Currently or been in a relationship where the following occur: No concerns reported THRIVE Score: 0 AUDIT C Alcohol Use Questionnaire (AUDIT-C) 1. How often do you have a drink containing alcohol?: Never 3. How often do you have six or more drinks on one occasion?: Never Total Score: 0 Score Reviewed/Action Taken: Yes CHICHI-7 AMB Questionnaire CHICHI-7 Date CHICHI - 7 assessed: 07/15/24 Feeling nervous, anxious, or on edge: 0 = Not at all Not being able to stop or control worryin = Not at all Worrying too much about different things: 0 = Not at all Trouble relaxin = Not at all Being so restless that it is hard to sit still: 0 = Not at all Becoming easily annoyed or irritable: 0 = Not at all Feeling afraid as if something awful might happen: 0 = Not at all Total CHICHI-7 score (0-4 normal; 5-9 mild; 10-14 moderate; 15-21 severe): 0 Source: Developed by Drs. Benson Wise, Hodan Malhotra, Haider Maria and colleagues, with an educational sharon from [employer]. Review of Systems Const Denies chills, Reports difficulty sleeping (worsening), Denies fatigue, Denies fever(s) and Denies headache(s) ENT Denies dysphagia, Denies dizziness, Denies otalgia, Denies headache(s), Denies neck pain, Denies odynophagia and Denies sore throat Card Denies chest pain, Denies palpitations and Denies dyspnea Resp Denies chest congestion, Denies cough and Denies dyspnea GI Denies abdominal pain, Denies constipation, Denies dysphagia, Denies heartburn, Denies diarrhea, Denies nausea, Denies odynophagia and Denies vomiting Denies difficulty voiding, Denies nocturia, Denies dysuria and Denies urinary urgency Musc Denies back pain, Reports arthralgias (on and off in the left knee) and Denies neck pain Skin/Breast Denies rash Neuro Denies dizziness and Denies headache(s) Psych Denies anxiety and Denies depression Endo Denies fatigue and Denies palpitations Physical exam (Primary Care) Vital Signs: Last Vital Signs Pulse 71 07/15/24 09:43 BP 124/78 07/15/24 09:43 Pulse Ox 99 07/15/24 09:43 Oxygen Delivery Method Room Air 07/15/24 09:43 BMI result Body Mass Index 35.8 Tobacco/Smoking Status: Tobacco use Status Tobacco use date assessed 07/15/24 07/15/24 09:49 Patient Tobacco Use Status Never used Tobacco 07/15/24 09:49 e-Cigarette/Vaping Use Never Used 07/15/24 09:49 PHQ-9: PHQ-9 Score PHQ-9: Total score 0 07/15/24 12:42 Depression Screening Interpretation: Negative Thrive Assessment: Date of Thrive Assessment Date Thrive assessed 07/15/24 07/15/24 09:49 Currently or been in a relationship where the following occur: No concerns reported Const General: no acute distress and alert HENMT Ears: TM's normal bilaterally and EAC's normal Throat: Yes posterior oropharynx normal and Yes tonsils normal (no TP congestion) Neck Neck: Yes no lymphadenopathy and Yes supple Thyroid: Thyroid normal Resp Auscultation: clear to auscultation bilaterally, no rales and no wheezes Cardio Rate: regular rate Rhythm: regular rhythm Heart sounds: no murmurs GI Palpation (GI): Soft to palpation and nontender Auscultation: normal bowel sounds General: Yes no CVA tenderness Back/Spine/Pelvis Back: no CVA tenderness Thoracic/Lumbar Spine: No lumbar spinal tenderness Skin Rashes: no rashes Extrem General: Yes no clubbing, cyanosis or edema Left lower extremity: knee Details: tenderness and normal ROM; no swelling Office Procedures Flu Questionnaire Does the patient have a severe egg allergy?: No Immunizations Fluarix Triv [id number] (PF) 45 mcg (15 mcg x 3)/0.5 mL IM syringe Performing Provider: Pedro Luis Field MD Performing Location: [facility] [place] [facility] Documented (not given) by: PAIGE Fontana on 07/15/24 09:55 Reason Not Given: Received Previously Results Reviewed Results Reviewed: Laboratory Tests 01/10/24 08:42 WBC 10.3 Hgb 13.2 Hct 41.1 Plt Count 321 Sodium 140 Potassium 4.2 Creatinine 0.77 Estimated GFR > 60 Fasting Glucose 89 Calcium 9.4 D AST 16 ALT 14 Triglycerides 105 Cholesterol 177 LDL Cholesterol, Calc 103 H HDL Cholesterol 53 25-OH Vitamin D Total 24.1 L TSH 2.10 Ur Specific [place] 1.020 Urine Protein Negative Urine Glucose (UA) Negative Urine Blood Trace H Urine Nitrite Negative Ur Leukocyte Esterase Large (3+) H Coding Level of Care Code Est Pt Level 4 (11596) Diagnoses Osteoarthritis of left knee, unspecified osteoarthritis type M17.12 Osteoarthritis type: unspecified Elevated blood pressure reading in office without diagnosis of hypertension R03.0 Psoriasis L40.9 Vitamin D deficiency E55.9 Insomnia, unspecified type G47.00 Insomnia type: unspecified Obesity, class 1 E66.811 Assessment & Plan Assessment & Plan (1) Degenerative joint disease of left knee: Code(s): M17.12 - Unilateral primary osteoarthritis, left knee Category: Medical Qualifiers: Osteoarthritis type: unspecified Qualified Code(s): M17.12 - Unilateral primary osteoarthritis, left knee Plan: She has reportedly been recommended by orthopedics previously to continue with conservative management of her knee issues She was getting visco-supplementation and cortisone injection from orthopedics in the past but she reports (+) significant reduction of her knee symptoms and pain with her weight loss over the past year and at currently does not feel that she needs anything other than symptomatic Tx for now Follow up with orthopedics ([facility]) as scheduled (2) Elevated blood pressure reading in office without diagnosis of hypertension: Code(s): R03.0 - Elevated blood-pressure reading, without diagnosis of hypertension Category: Medical Plan: Her blood pressure today appears well-controlled - patient feels that this has improved a lot as well with her weight loss Reinforced low sodium diet and she is reminded to continue monitoring her blood pressure regularly (3) Psoriasis: Code(s): L40.9 - Psoriasis, unspecified Category: Medical Plan: She recalls being treated with Methotrexate, Humira and Otezla in the past but she is currently not on any Rx any longer Follow up with [facility] as scheduled (4) Vitamin D deficiency: Code(s): E55.9 - Vitamin D deficiency, unspecified Category: Medical Plan: Results of her labs done back in January 2024 reviewed and discussed with patient - she is advised that other than low vitamin D level, her labs were all within normal range Will start her on Vitamin D3 2000 units QD - advised that she may have to get this OTC if her insurance will not cover the Rx (5) Insomnia: Code(s): G47.00 - Insomnia, unspecified Category: Medical Qualifiers: Insomnia type: unspecified Qualified Code(s): G47.00 - Insomnia, unspecified Plan: Have advised patient to either try taking her OTC Benadryl a little earlier or try OTC Melatonin instead Admits that she would sometimes go to bed very late at night even though she already took her sleep aid and by the time she is ready to go to sleep, the effects of the Rx she took may have already worn off somewhat Have advised patient that she should really not be doing much anymore in terms of activity close to her bedtime and should give her mind a chance to unwind for an hour or so before she goes to sleep at night - sleep hygiene reinforced (6) Obesity, class 1: Code(s): E66.811 - Obesity, class 1 Category: Medical Plan: Reinforced diet/exercise as tolerated/lose weight Continue Ozempic 0.5 mg SQ once a week - she gets this from an online weight management program Plan To return in 6 months for her next annual physical examination Orders: Orders Complete Blood Count Auto Diff 6 Months D64.9 - Anemia, unspecified, Z00.00 - Encounter for general adult medical examination without abnormal findings Lipid Panel 6 Months E78.00 - Pure hypercholesterolemia, unspecified, Z00.00 - Encounter for general adult medical examination without abnormal findings TSH reflex Free T4 6 Months E78.00 - Pure hypercholesterolemia, unspecified, Z00.00 - Encounter for general adult medical examination without abnormal findings UA CC w/rflx Micro + Cult 6 Months R30.0 - Dysuria, Z00.00 - Encounter for general adult medical examination without abnormal findings Vitamin B12 and Folate 6 Months E53.8 - Deficiency of other specified B group vitamins Influenza [id number] Immunization 07/15/24 Z23 - Encounter for immunization Comprehensive [place]. Panel Fast 6 Months E78.00 - Pure hypercholesterolemia, unspecified, Z00.00 - Encounter for general adult medical examination without abnormal findings Vitamin D 25-OH Total 6 Months E55.9 - Vitamin D deficiency, unspecified, Z00.00 - Encounter for general adult medical examination without abnormal findings Medications: New cholecalciferol (vitamin D3) 50 mcg PO DAILY 90 days 90 caps 3RF E55.9 - Vitamin D deficiency, unspecified
[2024-07-15 09:43] VITALS: BP 124/78; PULSE 71; O2SAT 99; BMI 35.8
== END 2024-07-15 10:27 | disposition home or self-care (01) ==
PROVIDERS: PCP Internal Medicine; Visit Provider Internal Medicine
DX: M17.12 Unilateral primary osteoarthritis, left knee (principal); R03.0 Elevated blood-pressure reading, without diagnosis of hypertension; E66.812 Obesity, class 2; Z68.35 Body mass index [BMI] 35.0-35.9, adult; L40.9 Psoriasis, unspecified; E55.9 Vitamin D deficiency, unspecified; G47.00 Insomnia, unspecified

== ENCOUNTER → 2024-07-15 09:41 | Outpatient (BNVA) | payer OTHER, SELFPAY | PROVIDERS: PCP Internal Medicine; Visit Provider Internal Medicine | DX: M17.12 Unilateral primary osteoarthritis, left knee (principal); R03.0 Elevated blood-pressure reading, without diagnosis of hypertension; L40.9 Psoriasis, unspecified; E55.9 Vitamin D deficiency, unspecified; G47.00 Insomnia, unspecified; E66.811 Obesity, class 1; Z68.35 Body mass index [BMI] 35.0-35.9, adult; Z79.85 Long-term (current) use of injectable non-insulin antidiabetic drugs | CPT/HCPCS: 90471; 96127 ==

== ENCOUNTER 2024-08-18 12:35 | Day surgery (SDC) | payer OTHER, SELFPAY ==
[2024-08-14 14:46] VITALS: BMI 36.8
--- NOTE | 2024-08-15 10:01 | HO.ANESPROP2 ---
Documented by User: Clarisse Saleem NP 08/15/24 10:01 HPI - Anesthesia Eval Consult details Narrative: 58yo F for Colonoscopy Anesthesia Pre-Procedure Meds Is the patient on any of the following meds?: GLP1/DPP4 PMFSH Active Problems Active Problems: All Active Problems Breast density (Acute) Borderline high cholesterol (Acute) Screening for diabetes mellitus (DM) (Acute) Ear infection (Acute) Elevated blood pressure reading in office without diagnosis of hypertension (Acute) Annual physical exam (Acute) Vertigo (Acute) Left knee pain (Acute) Obesity, class 1 (Acute) Vitamin D deficiency (Acute) Obesity (BMI 30-39.9) (Acute) Insomnia (Acute) Psoriasis (Acute) Degenerative joint disease of left knee (Acute) Morbid obesity with BMI of 45.0-49.9, adult (Acute) Past Medical History Medical History (Updated 08/14/24 @ 14:49 by Rufina Salinas RN) Obesity, class 1 Vitamin D deficiency Insomnia Psoriasis Degenerative joint disease of left knee Morbid obesity with BMI of 45.0-49.9, adult Family History Family History Mother COPD (chronic obstructive pulmonary disease) High blood pressure Father Alcoholic Other Substance abuse Surgical History Surgical History (Updated 08/18/24 @ 12:58 by Dulce Murphy RN) History of facial surgery History of surgery History of excision of pilonidal cyst Hx of laparoscopy History of colonoscopy History of S/P tonsillectomy and adenoidectomy Social History Social History Housing: House Alcohol intake: never Patient Tobacco Use Status: Never used Tobacco e-Cigarette/Vaping Use: Never Used Second Hand Smoke Exposure: No Use of substances other than those prescribed or required for medical reasons: No Are you DNR?: No Advance Directives: No Advance Directives Information Provided: Yes Recently lost weight without trying: No How much weight loss: 34pounds or more Nutrition Risks: No Nutritional Risk Patient : No service: No Current occupational status: employed Cognitive needs: No Hearing needs: No Vision needs: Yes (Glasses) Meds Allergies Allergy/AdvReac Type Severity Reaction Status Date / Time bee pollen [bee stings] Allergy Severe Anaphylaxis Verified 08/14/24 14:46 adhesive AdvReac Intermediate steri Verified 08/14/24 14:46 strips-topical reaction Home Medications ?Medication ?Instructions ?Recorded ?Confirmed ?Last Taken ?Type semaglutide 0.25 mg or 0.5 mg (2 0.5 mg subcut QWEEK 01/09/24 08/14/24 08/10/24 History mg/3 mL) subcutaneous pen injector Exam Height,Weight and Vital Signs: Height 5 ft 9 in Weight 112.945 kg Assessment and Plan Assessment Anesthesia Assessment: Chart Reviewed Documented by User: Ebony Zheng MD 08/18/24 13:38 PMFSH Past Medical History Medical History (Updated 08/14/24 @ 14:49 by Rufina Salinas RN) Obesity, class 1 Vitamin D deficiency Insomnia Psoriasis Degenerative joint disease of left knee Morbid obesity with BMI of 45.0-49.9, adult Family History Family History Mother COPD (chronic obstructive pulmonary disease) High blood pressure Father Alcoholic Other Substance abuse Family history of problems with anesthesia: No Surgical History Surgical History (Updated 08/18/24 @ 12:58 by Dulce Murphy RN) History of facial surgery History of surgery History of excision of pilonidal cyst Hx of laparoscopy History of colonoscopy History of S/P tonsillectomy and adenoidectomy History of Problems with Anesthesia: No Social History Social History Housing: House Alcohol intake: never Patient Tobacco Use Status: Never used Tobacco e-Cigarette/Vaping Use: Never Used Second Hand Smoke Exposure: No Use of substances other than those prescribed or required for medical reasons: No Are you DNR?: No Advance Directives: No Advance Directives Information Provided: Yes Recently lost weight without trying: No How much weight loss: 34pounds or more Nutrition Risks: No Nutritional Risk Patient : No service: No Current occupational status: employed Cognitive needs: No Hearing needs: No Vision needs: Yes (Glasses) Meds Allergies Allergy/AdvReac Type Severity Reaction Status Date / Time bee pollen [bee stings] Allergy Severe Anaphylaxis Verified 08/14/24 14:46 adhesive AdvReac Intermediate steri Verified 08/14/24 14:46 strips-topical reaction Home Medications ?Medication ?Instructions ?Recorded ?Confirmed ?Last Taken ?Type semaglutide 0.25 mg or 0.5 mg (2 0.5 mg subcut QWEEK 01/09/24 08/14/24 08/10/24 History mg/3 mL) subcutaneous pen injector Exam Airway Mallampati Class: II TM Dist: >3cm Neck ROM: Full Assessment and Plan Assessment Anesthesia Assessment: Anesthesia Plan Discussed Final Anesthetic Review Family History of Problems with Anesthesia: No History of Problems with Anesthesia: No NPO: Yes ASA Class: II Final Preanesthetic Review: No Changes in Pt Med Stat, Meds/Allgs Chart Reviewed, Consent Obtained/Reviewed, Anes Risks/Benef Reviewed and DNR Form (If Appl.) Patient Risk: Intermediate Procedure Risk: Low Anesthetic Plan Anesthetic Plan: TIVA Disposition: Standard PACU
[2024-08-18 12:57] VITALS: BMI 36.7
[2024-08-18 13:08] VITALS: BP 140/65; PULSE 74; RESP 16; TEMP 36.7; O2SAT 97
[2024-08-18] MEDS: Lactated Ringers 1,000 ML 100 ML IVCONT (13:22)
[2024-08-18 15:21] VITALS: BP 106/57; PULSE 81; RESP 16; TEMP 36.1; O2SAT 98
[2024-08-18 15:36] VITALS: BP 121/62; PULSE 61; RESP 18; TEMP 36.4; O2SAT 99
--- NOTE | 2024-08-18 15:36 | P.BOP_ITS ---
Brief Operative Note Date of Service: 08/18/24 Pre-op diagnosis: Screening Post-op diagnosis: other (Diverticulosis) Procedure: Colonoscopy to the cecum Surgeon: Benson Lloyd MD Anesthesia: MAC Was an Time Study Technician used for this Procedure?: No Estimated blood loss (mL): 0 Pathology: none sent Condition: stable Disposition: PACU
--- NOTE | 2024-08-19 01:22 | OP_ITS ---
DATE OF SERVICE: 08/18/2024 SURGEON: Benson Lloyd MD INDICATIONS: The patient presents for followup of colorectal cancer screening and personal history of tubular adenoma of the colon. Full consent has been obtained from her for this, including risks of bleeding and perforation. PREOPERATIVE DIAGNOSIS: POSTOPERATIVE DIAGNOSIS: PROCEDURE PERFORMED: Colonoscopy to the cecum. ESTIMATED BLOOD LOSS: COMPLICATIONS: ANESTHESIA: Monitored anesthesia care. ASSISTANTS: SPECIMENS: PREOPERATIVE DIAGNOSES: Colorectal cancer screening and personal history of tubular adenoma of the colon. POSTOPERATIVE DIAGNOSES: Colorectal cancer screening and personal history of tubular adenoma of the colon, mild diverticulosis, small internal hemorrhoids, somewhat limited prep. DESCRIPTION OF PROCEDURE: The patient was placed in the left lateral decubitus position. The digital rectal exam revealed no abnormalities. The Olympus video pediatric colonoscope was entered into the rectum and advanced to the cecum with the assistance of abdominal wall pressure. Advancement was made more difficult due to a somewhat poor prep on the way in. Once in the cecum, after copious irrigation, I did visualize normal-appearing cecal pouch with appendiceal orifice and a normal-appearing ileocecal valve. The scope was then slowly withdrawn assessing all mucosal surfaces carefully. Preparation became for the most part good after a lot of irrigation and suctioning, but there were still some limited areas due to a lot of residual liquid stool. I did not visualize any sign of polyps, colitis, nor angiodysplasia. There was a mild amount of sigmoid diverticulosis. In the rectum, scope was retroflexed visualizing some internal hemorrhoids, but no other pathology. The rectal mucosa appeared normal. The scope was straightened and withdrawn from the patient. She tolerated the procedure well and was returned to the recovery area in stable condition. IMPRESSION: 1. Diverticulosis. 2. Internal hemorrhoids. 3. Somewhat limited prep, most likely in relation to her use of Ozempic. PLAN: Given that this was her second colonoscopy, and the initial one had shown only relatively minimal findings, I think we could have her do a Cologuard test and then if that is negative, proceed with a followup colonoscopy in 3-5 years. If the Cologuard test happens to be positive, we would then need to proceed with a repeat colonoscopy with a better clean out. I shall discuss this with her. The alternative would be to have her just repeat the colonoscopy with a better clean out if she so desires. We would also want to keep her off the Ozempic for least 2 weeks at that point. She has been given instructions in this regard, and this has been discussed with her as well. MD RYAN Razo/RAJ / [id number]
== END 2024-08-18 16:00 | disposition home or self-care (01) ==
PROVIDERS: PCP Internal Medicine; Visit Provider Internal Medicine
PROC: 0DJD8ZZ Inspection of Lower Intestinal Tract, Via Natural or Artificial Opening Endoscopic (ICD-10-PCS; CPT 45378; principal; 2024-08-18 14:20)
DX: Z12.11 Encounter for screening for malignant neoplasm of colon (principal); Z86.0101 Personal history of adenomatous and serrated colon polyps; K57.30 Diverticulosis of large intestine without perforation or abscess without bleeding; K64.8 Other hemorrhoids; L40.9 Psoriasis, unspecified; E66.811 Obesity, class 1; Z68.36 Body mass index [BMI] 36.0-36.9, adult; Z79.85 Long-term (current) use of injectable non-insulin antidiabetic drugs; Z98.890 Other specified postprocedural states
CPT/HCPCS: 45378; J2003; J2704

== ENCOUNTER 2025-02-09 07:04 | Outpatient (REF) | payer OTHER, SELFPAY ==
--- OUTSIDE RECORDS SUMMARY | 2025-02-09 07:08 | XMS_ITS | Clinical Summary ---
Author Organization [facility] Address [address] [place] [address] Care Team Providers Care Manual Equipment Mechanic Name Role Phone Pedro Luis Field MD Primary Care Provider Allergies Active Allergy Reactions Criticality Noted Date Comments Bee Venom Protein (Honey Bee) 2005 Active Problems Problem Noted Date Diagnosed Date Genital herpes 11/20/2024 Overview (11/20/2024): on Valtrex daily suppressive therapy IMO update Papanicolaou smear of cervix with atypical squamous cells of undetermined significance (ASC-US) 03/10/2019 Overview (11/20/2024): History: PAP 02/19/2018: ASCUS; High Risk HPV DNA negative PAP 03/05/2019: Uterine fibroid 01/21/2014 Bilateral ovarian cysts 06/16/2013 Obese 05/23/2011 Surgical History Surgery Date Site/Laterality Comments MYOMECTOMY PROCEDURE: UT LAPS MYOMECTOMY EXC 1-4 MYOMAS 250 GM/< TONSILLECTOMY PROCEDURE: UT TONSILLECTOMY PRIMARY/SECONDARY <AGE 12 SECTION PROCEDURE: UT DELIVERY ONLY Medical History Medical History Date Comments Genital herpes, unspecified DX:G enital herpes, unspecified; COMMENT: on Valtrex daily suppresive therapy Venereal disease, unspecified DX :Venereal disease, unspecified Family History Medical History Relation Name Comments Lymphoma Father's side 1 cousins Colon cancer Maternal Grandmother Hyperlipidemia Mother Melanoma Mother Breast cancer Mother's side 1 mat aunt dx age 65 Colon cancer Mother's side 2 uncle Breast cancer Other cousin first cousin; dx'd in 40s Cancer of Small Bowel Neg Hx Kidney cancer Neg Hx Ovarian cancer Neg Hx Pancreatic cancer Neg Hx Uterine cancer Neg Hx Relation Name Status Comments Brother 1 Alive Brother 2 Alive Daughter Alive Father (Age 55) alcoholism Father's side 1 Father's side 2 Maternal Grandmother Mother Alive Mother's side 1 Mother's side 2 Mother's side 3 Other cousin Alive Sister Alive Social History Tobacco Use Types Packs/Day Years Used Date Smoking Tobacco: Never Smokeless Tobacco: Never Alcohol Use Standard Drinks/Week Comments No 0 (1 standard drink = 0.6 oz pur e alcohol) Comments Unknown Sex and Gender Information Value Date Recorded Sex Assigned at Not on file Legal Sex Female 4:53 PM EST Gender Identity Not on file Sexual Orientation Not on file Obstetrics History Last Filed Vital Signs Vital Sign Reading Time Taken Comments Blood Pressure 134/77 09/11/2023 3:40 PM EST Sit ting R Arm Pulse 73 09/11/2023 3:40 PM EST Temperature - - Respiratory Rate - - Oxygen Saturation - - Inhaled Oxygen Concentration - - Weight 123 kg (272 lb) 09/11/2023 3:40 PM EST Height 175.3 cm (5' 9 ) 09/11/2023 3:40 PM EST Body Mass Index 40.17 09/11/2023 3:40 PM EST Plan of Treatment Upcoming Encounters Date Type Department Care Team (Late st Contact Info) Description 03/20/2025 10:30 AM EDT Office Visit Bariatric Surgery - [place] [address] [facility] [address] [place] [phone] Jeni Carrasquillo PA [address] [facility] [address] [place] [address] Health Maintenance Due Date Last Done Comments Breast Cancer Screening 1965 DTaP,Tdap,and Td Vaccines (1 - Tdap) 1985 Hepatitis B Vaccines (1 of 3 - 19+ 3-dose series) 1985 Pneumococcal Vaccine: 50+ Ye ars (1 of 1 - PCV) 2016 Zoster Vaccines (1 of 2) 2016 Cholesterol Screening (Lipid Panel) 09/06/2022 Colorectal Cancer Screening: Colonoscopy 09/06/2022 Depression Screening 09/06/2022 HIV Screening 09/06/2022 Hepatitis C Screening 09/06/2022 Social Influencers of Health Screening 09/06/2022 COVID-19 Vaccine (1 - 4-2 5 season) 2024 Influenza Vaccine (Season Ended) 2025 Cervical Cancer Screening: HPV 09/11/2028 09/11/2023 HIB Vaccines Aged Out No longer eligi ble based on patient's age to complete this topic HPV Vaccines Aged Out No longer eligi ble based on patient's age to complete this topic Hepatitis A Vaccines Aged Out No long er eligible based on patient's age to complete this topic IPV Vaccines Aged Out No longer eligi ble based on patient's age to complete this topic MMR Vaccines Aged Out No longer eligi ble based on patient's age to complete this topic Meningococcal ACWY Vaccine Aged Out N o longer eligible based on patient's age to complete this topic Meningococcal B Vaccine Aged Out No l onger eligible based on patient's age to complete this topic Pneumococcal Vaccine: Pediat rics (0 to 5 Years) and At-Risk Patients (6 to 64 Years) Aged Out No longer eligi ble based on patient's age to complete this topic RSV Immunization Patients Un lela 20 months Aged Out No longer eligible b ased on patient's age to complete this topic Varicella Vaccines Aged Out No longer eligible based on patient's age to complete this topic Procedures Procedure Name Priority Date/Time Associated Diagnosis Comments HPV Routine 09/11/2023 from Last 3 Months or Most Recently Relevant to Health Maintenance Results * Cervical Cancer Screening: HPV (09/11/2023) Cervical Cancer Screening: HPV negative, abstracted Historical Provider HEALTH MAINTENANCE Final Result from Last 3 Months or Most Recently Relevant to Health Maintenance Insurance [facility] [place]ERE[place] [id number] Care Teams Manual Equipment Mechanic Relationship Specialty Start Date End Date Pedro Luis Field MD [address] [place] [address] Doug Max MA PCP - General Internal Medicine 05/22/22
--- OUTSIDE RECORDS SUMMARY | 2025-02-09 07:08 | XMS_ITS ---
Author Organization [facility] Address [address] [place] [address] Care Team Providers Care Quiller Runner Name Role Phone Emir CARMICHAEL, [place] Primary Care Provider Unava Benson Mcneil Unavailable [phone] REASON FOR VISIT screening,hx polyps Problems Problem Type SNOMED Code ICD Code Onset Dates Problem Status W/U Status Risk Notes Problem Diverticulosis o f large intestine without perforation or abscess without bleeding (K57.30) Active confirmed Encounters Encounter Location Date Provider Diagnosis [facility] Outpatient [address] [place] [phone] 08/18/2024 Benson Lloyd Colon cancer scree ender [...] * RATNA RODRÍGUEZ: 7 (59 yo F)Acc No.[id number]:08/18/2024 COLON WITH MAC Patient:?FERRITER, ZEHRA Provider:?Benson Lloyd MD :1965???Age:58 Y???Sex:Female D ate:08/18/2024 Address:[address] [place] [address] [id number] Pcp:Pedro Luis Field MD Subjective: * Chief Complaints: * ???1. Screening,hx polyps. * Medical History:? Objective: * Vitals:? Assessment: * Assessment: 1.?Colon cancer screening - Z12.11 (Primary)???2.?Personal history of colonic polyps - Z86.0100???3.?Diverticulosis of large intestine without perforation or abscess without bleeding - K57.30???4.?Other hemorrhoids - K64.8??? Plan: * Treatment: * Procedure Codes:?92482 DIAGN OSTIC COLONOSCOPY, Modifiers: 53 * * The named appointment provid er may or may not be the originator of this progress note, and it is not deemed complete until electronically signed by the appointment provider. Sign off status: Pending * Provider:?Benson Lloyd MD Date:? 024 Generated for Ras mcmullen/Linda/eTransmitting on:?02/09/2025 07:08 AM EDT
--- OUTSIDE RECORDS SUMMARY | 2025-02-09 07:08 | XMS_ITS ---
Author Organization [facility] Address [address] [place] [address] Care Team Providers Care Drapery Inspector Name Role Phone Emir CARMICHAEL, [place] Primary Care Provider Benson Wall [phone] Allergies Allergen (clinical drug ingredient) Drug/Non Drug [...] Problem History of polyp of colon (situation) (655377374) Personal history of colonic polyps (Z86.010) Active confirmed Vital Signs Blood pressure systolic 00 mm Hg 05/22/20 24 Blood pressure diastolic 00 mm Hg 024 Height 69 in 05/22/2024 Weight 249 lbs 05/22/2024 BMI 36.77 kg/m2 05/22/2024 Encounters Encounter Location Date Provider Diagnosis [facility] [address] [place] [address] 05/22/2024 Benson Lloyd Encounter for screen ing [...] * LIA RODRÍGUEZB: 7 (58 yo F)Acc No.[id number]:05/22/2024 Progress Notes Patient:?DAT RODRÍGUEZ Provider:?Benson Lloyd MD :1965???Age:58 Y???Sex:Female D ate:05/22/2024 [address]:[address] [place] [address] [facility] Pcp:Pedro Luis Field MD Subjective: * Chief Complaints: * ???Patient presents today fo r a screening colon * HPI: ???incontinence:? I saw Dat in the office today for evaluation of her personal history of a tubular adenoma of the colon and need for colorectal cancer screening. ?I last saw Dat in 2018, at which [...] a maternal grandmother and maternal uncle. * ROS:?General/Constitutional:?Change in appetite?denies.?Chills?denies.?Fatigue?denies.?Ophthalmologic:?Comments?all negative.?ENT:?Comments?all negative.?Respiratory:?hemoptysis?denies.?Cough?denies.?Cardiovascular:?Chest pain?denies.?Orthopnea?denies.?Gastrointestinal:?Comments?See HPI for details.?Genitourinary:?Hematuria?denies.?Dysuria?denies.?Musculoskeletal:?Painful joints?Knee arthritis bilaterally.?Weakness?denies.?Skin:?Itching?denies.?Rash?denies.?Neurologic:?Headache?denies.?Seizures?denies.?Psychiatric:?Comments?all negative.? * Medical History:? * Surgical History:? 1994Fibroid removal 1994Tonsillectomy and adenoidectomy 1976Pilonidal cyst excision 1985Facial plastic surgery for dog bite 1970Anal skin tag removed in 2004 * Hospitalization/Major Diagno stic Procedure:?No Hospitalization History. * Family History:?Father: dece ased, alcoholism.?Mother: , Afib, diagnosed with Heart disease.?Maternal Grand Mother: , in her 80's, diagnosed with Colon cancer.?Maternal uncle: , In his 60's, diagnosed with Colon cancer.? * Social History:?Tobacco Use:?Tobacco Use/Smoking?Patient is a?nonsmoker.?Drugs/Alcohol:?Alcohol Screen?Did you have a drink containing alcohol in the past year??No,?Points?0,?Interpretation?Negative.?Miscellaneous:?Marital status: . 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 ???Nonsmoker; no alcohol. * Medications:?TakingSemagluti de (1 MG/DOSE) 4 MG/3ML Solution Pen-injector as directed Subcutaneous Medication List reviewed and reconciled with the patientTaking Semaglutide (1 MG/DOSE) 4 MG/3ML Solution Pen-injector as directed Subcutaneous Medication List reviewed and reconciled with the patient * Allergies:?BEESyes[Allergies Verified] Objective: * Vitals:?Wt: 249 lbs, Ht: 69 in, BMI:36.77 Index, BP: 00/00 mm Hg. * Examination: ???General Examination: ?GENERAL APPEARANCE:?pleasant, well nourished, well developed, in no acute distress.?EYES:?sclera non-icteric.?ORAL CAVITY:?mucosa moist.?NECK/THYROID:?no cervical lymphadenopathy, neck supple.?SKIN:?nonjaundiced, no spider angiomata.?HEART:?S1, S2 normal.?LUNGS:?clear to auscultation bilaterally.?ABDOMEN:?normal bowel sounds, no guarding or rigidity, no guarding or rigidity, no masses palpable, soft, nontender, nondistended.?EXTREMITIES:?no edema.?NEUROLOGIC:?alert and oriented.? Assessment: * Assessment: 1.?Preprocedural examination - Z01.818 (Primary)?2.?Encounter for screening for malignant neoplasm of colon - Z12.11?3.?Personal history of colonic polyps - Z86.010? Overall, Dat appears quite well. I did [...] 08/18/24 a t 2:30 pmmiralax * Procedure Codes:?3017F COLOR ECTAL CA SCREEN DOC [id number] TOBACCO [id number] BP SCR NOT PRFRM REC REASON NOS * Preventive Medicine:? ??Counseling:?Care goal follow-up plan:?Above Normal BMI Follow-up?Giving encouragement to exercise,?BMI management provided?Yes.? * Follow Up:?prn * * Sign off status: Completed true * Provider:?Benson Lloyd MD Date:? 024 Generated for Sarahi kemi/Linda/eTransmitting on:?02/09/2025 07:07 AM EDT History and Physical Notes * HPI [...]
--- OUTSIDE RECORDS SUMMARY | 2025-02-09 07:08 | XMS_ITS | Data Portability ---
Author Organization [facility], Home Service Address [address] [place] [address] Assessment No assessment recorded. Plan of Treatment Reminders Order Date Submit Date Provider Last Modified By Organization Details Last Modified Time Details Appointments None recorded. Lab urinalysis , dipstick 2019 [facility], [address], [address], [place], [address], 0 09:23:48 culture, urine + sensitivit y 2019 [facility], [address] [place] [address], [address], 0 02:33:07 CBC w/ auto diff 2019 [facility], [address] [place] [address], [address], 0 01:02:55 CMP, serum or plasma 2019 [facility], [address] [place] [address], [address], 0 01:02:55 lipid panel, blood 2019 [facility], [address] [place] [address], [address], 0 01:02:55 SARS coronaviru s IgG Ab, QL, IA, serum 2019 [facility], [address] [place] [address], [place], [address], 0 01:02:55 Referral urologist referral 2019 020 [email or web address] [facility], [address], [place], [address], 0 09:38:56 colonoscop y referral 2017 018 [facility], [address] [place], [address], 8 13:35:37 Procedures None recorded. Surgeries None recorded. Imaging US, neck 2019 020 [email or web address] 10 [facility] Central Scheduling, [address], [place], [address], 0 08:17:43 Medication Orders Bactrim DS 800 mg-160 mg tablet 2019 020 [email or web address] [facility] #[id number], [address], [place], [id number], 0 14:03:04 EpiPen 2-Zachary 0.3 mg/0.3 mL injection, auto-injec tor 2019 020 INTERFACE [facility] #[id number], [address], [place], [id number], 0 09:23:57 Contrave 8 mg-90 mg tablet,ext ended release 2017 018 [email or web address] [facility] #[id number], [address], [place], [id number], 8 15:33:27 Patient TargetsNo targets recorded. Patient Instructions Encounter Date Encounter Id Patient Instructions Last Modified By Organization Details Last Modified Time 02/19/2018 [id number] Healthy diet & exercise to reduce risk heart disease and diabetes and certain cancers. Research Mediterranean diet Eat breakfast daily, Eat three meals daily that have some protein with healthy snacks periodically Avoid processed foods. Increase fruits and vegetable intake. ( 5 servings daily)Replace red meat with fish +/or chicken +/or turkey most days of week. When you have red meat, buy lean cuts Try an 'maria isabel'for your phone, like my fitness pal' to track calories Exercise at least 1/2 hr 5 times per week, can break down into 10 minute segments, must get your heart rate up. Find an activity you enjoy, so you will stick with it. blossom Not available 02/19/2018 17:44:03 08/27/2018 [id number] Call if persists beyond 14 days or if fever, blood blossom Not available 08/27/2018 16:38:11 Stay hydrated, avoid heavy creams, gravies, milk products blossom Not available 08/27/2018 16:39:23 Reason for Referral Colonoscopy Referral for Occ ult blood detected in feces + guaiac Referring Physician: Delmi Nicholson, Internal Medicine, Encounter Date: 02/19/2018 Urologist Referral for Urina ry incontinence night time incontinence Referring Physician: Poly Posadas, Internal Medicine, Encounter Date: 06/02/2020 Results Created Date Observation Date Name Description Value Unit Range Abnormal Flag Note LastModifiedBy Organization Detail LastModifiedTime 03/31/2003/31/2020 urina lysis , dipst ick Leukocytes Trace Not Available [facility] [address], [place], [address], 03/31/2020 09:02:53 03/31/2003/31/2020 urina lysis , dipst ick Nitrite negati ve Not Available [facility] [address], [place], [address], 03/31/2020 09:02:53 03/31/2003/31/2020 urina lysis , dipst ick Urobilinogen .2 Not Available [facility] [address], [place], [address], 03/31/2020 09:02:53 03/31/20 20 03/31/2020 urina lysis , dipst ick Protein Negati ve Not Available [facility] [address], [place], [address], 03/31/2020 09:02:53 03/31/20 20 03/31/2020 urina lysis , dipst ick pH 6.0 Not Available [facility] [address], [place], [address], 03/31/2020 09:02:53 03/31/20 20 03/31/2020 urina lysis , dipst ick Blood Non-He molyze d: Trace Not Available [facility] [address], [place], [address], 03/31/2020 09:02:53 03/31/20 20 03/31/2020 urina lysis , dipst ick Specific [place] 1.020 Not Available [facility] [address], [place], [address], 03/31/2020 09:02:53 03/31/2003/31/2020 urina lysis , dipst ick Ketone Negati ve Not Available [facility] [address], [place], [address], 03/31/2020 09:02:53 03/31/2003/31/2020 urina lysis , dipst ick Bilirubin Negati ve Not Available [facility] [address], [place], [address], 03/31/2020 09:02:53 03/31/2003/31/2020 urina lysis , dipst ick Glucose Negati ve Not Available [facility] [address], [place], [address], 03/31/2020 09:02:53 03/31/20 20 03/31/2020 urina lysis , dipst ick Appearance Clear Not Available [facility] [address], [place], [address], 03/31/2020 09:02:53 03/31/20 20 03/31/2020 urina lysis , dipst ick Color Yellow Not Available [facility] [address], [place], [address], 03/31/2020 09:02:53 07/18/20 18 07/17/2018 MAMMO , scree ender, bilat eral No observ ation record ed. blossom Not Available 2017 15:23:54 07/28/20 19 07/28/2019 MAMMO , scree ender, bilat eral No observ ation record ed. [email or web address] [facility] (Outpt Imaging) [address] [place], [address], 07/28/2019 13:33:54 07/30/20 19 07/30/2019 US, breas t, unila teral No observ ation record ed. [email or web address] (Outpt Imaging) [address] [place], [address], 07/30/2019 12:31:48 07/30/20 19 07/30/2019 MAMMO , diagn ostic , tomos ynthe sis, unila teral No observ ation record ed. [email or web address] (Outpt Imaging) [address] [place], [address], 07/30/2019 12:31:48 08/02/20 20 08/02/2020 MAMMO , diagn ostic , digit al, bilat eral No observ ation record ed. [email or web address] [facility] [address] [facility], [place], [address], 08/02/2020 15:48:41 08/17/20 21 08/17/2021 MAMMO , scree ender, digit al, bilat eral No observ ation record ed. rtba [facility]) [address], [place], [address], 08/17/2021 16:32:24 Result Notes None recorded. Problems Name Problem SNOMED Code Status Onset Date Resolution Date Notes Provider Name and Address Organization Details Recorded Time History of psoriasis 554383605 Active 018 Not Available [facility] 0 11:27:29 Problem Notes None recorded. Procedures Surgical History Date Name Laterality Status Provider Name and Address Organization Details Recorded Time 018 Colonoscopy completed Trisha Marmolejo [facility] 08/09/2018 13:52:10 017 Most Recent Mammogram completed Delmi Nicholson NP, [address] [place] [address], [address], [facility] 02/19/2018 15:25:47 016 Date of Last Pap Smear completed Delmi Nicholson NP, [address] [place] [address], [address], [facility] 02/19/2018 15:25:10 Caesarean Section completed Delmi Nicholson NP, [address] [place] [address], [address], [facility] 12/30/2018 06:51:54 tonsillectomy completed Delmi woods NP, [address] [place] [address], [address], [facility] 12/30/2018 06:52:08 Myomectomy completed Delmi Nicholson NP, [address] [place] [address], [address], [facility] 12/30/2018 06:52:26 removal of pilonidal cyst completed Delmi Nicholson NP, [address] [place] [address], [address], [facility] 12/30/2018 06:52:41 Imaging Results Imaging Date Name Status LastModified by Organization Details LastModified Time 07/17/2018 MAMMO, screening, bilateral completed [email or web address] Information not available 07/18/2018 15:23:54 07/28/2019 MAMMO, screening, bilateral completed [email or web address] [facility] (Outpt Imaging) [address] [place], [address], 07/28/2019 13:33:54 07/30/2019 US, breast, unilateral completed [email or web address] [facility] ([facility]pt Imaging) [address] [place], [address], 07/30/2019 12:31:48 07/30/2019 MAMMO, diagnostic, tomosynthesis, unilateral completed [email or web address] [facility] (Outpt Imaging) [address] [place], [address], 07/30/2019 12:31:48 08/02/2020 MAMMO, diagnostic, digital, bilateral completed [facility] [address], [place], [address], 08/02/2020 15:48:41 08/17/2021 MAMMO, screening, digital, bilateral completed [facility]) [address] , [place], [address], 08/17/2021 16:32:24 Procedure Notes None recorded. Medical Equipment None Reported. Allergies No known drug allergies Medications Name Sig Start Date Stop Date Status Note LastModified by Organization Details LastModified Time cyclobenzap rine 10 mg tablet 02/19 completed Not Available Not Available Not Available atovaquone 250 mg-proguani l 100 mg tablet 03/31 completed Not Available Not Available Not Available salicylic acid (bulk) powder 02/19 completed Not Available Not Available Not Available sulfamethox azole 800 mg-trimetho prim 160 mg tablet Take 1 tablet every 12 hours by oral route for 5 days. 06/02 completed Not Available Not Available Not Available betamethaso ne valerate 0.1 % topical cream 03/31 completed Not Available Not Available Not Available epinephrine 0.3 mg/0.3 mL injection, auto-inject or inject as needed for anaphylax sis active Not Available Not Available No t Available amoxicillin 875 mg-potnasiru m clavulanate 125 mg tablet 03/31 completed Not Available Not Available Not Available azithromyci n 500 mg tablet 03/31 completed Not Available Not Available Not Available Humira Pen 40 mg/0.8 mL subcutaneou s kit 02/19 completed Not Available Not Available Not Available Otezla 30 mg tablet Take 1 tablet twice a day by oral route for 30 days. 03/31 completed Not Available Not Available Not Available Contrave 8 mg-90 mg tablet,exte nded release 08/27 completed Not Available Not Available Not Available Afluria (PF) 45 mcg(15 mcg x 3)/0.5 mL intramuscul ar syringe 02/19 completed Not Available Not Available Not Available Fluarix Quad (PF) 60 mcg (15 mcg x 4)/0.5 mL IM syringe 08/27 completed Not Available Not Available Not Available Fluzone Quad (PF) 60 mcg (15 mcg x 4)/0.5 mL IM syringe 06/02 completed Not Available Not Available Not Available Vitals Date Recorded Body height Body mass index (BMI) Body weight Heart rate Oxygen saturation Oxygen saturation in Arterial blood by Pulse oximetry Systolic blood pressure Diastolic blood pressure Provider Name and Address Organization Details Last Updated DateTime 0 171.45 cm 48 kg/m2 910096. 51 g 75 /min 99 % 99 % 126 mm[Hg] 70 mm[Hg] Alley Garcia [facility] 0 09:02:36 Date Recorded Body height Body mass index (BMI) Body weight Heart rate Oxygen saturation Oxygen saturation in Arterial blood by Pulse oximetry Systolic blood pressure Diastolic blood pressure Provider Name and Address Organization Details Last Updated DateTime 0 171.45 cm 48.3 kg/m2 694111. 41 g 83 /min 96 % 96 % 124 mm[Hg] 76 mm[Hg] SOURAV JONES [address] [place], [address] 0 14:04:33 Date Recorded Body height Body mass index (BMI) Body weight Heart rate Oxygen saturation Oxygen saturation in Arterial blood by Pulse oximetry Body temperature Systolic blood pressure Diastolic blood pressure Provider Name and Address Organization Details Last Updated DateTime 8 171.45 cm 43.2 kg/m2 396126. 86 g 84 /min 99 % 99 % 97.7 [degF] 118 mm[Hg] 76 mm[Hg] Trisha [facility] 8 15:33:16 Date Recorded Body weight Body mass index (BMI) Body height Heart rate Oxygen saturation Oxygen saturation in Arterial blood by Pulse oximetry Systolic blood pressure Diastolic blood pressure Provider Name and Address Organization Details Last Updated DateTime 8 228326 g 48.5 kg/m2 171.45 cm 86 /min 97 % 97 % 110 mm[Hg] 80 mm[Hg] Trisha [facility] 8 15:15:23 Social History Question Answer Notes LastModified by [employer] Details LastModified Time Tobacco Smoking Status Never Smoker Not Available [facility] 08/10/2020 03:36:23 What Was The Date Of Your Most Recent Tobacco Screening? 08/27/2018 [id number] Information not available 08/10/2020 Sex: Unknown Functional Status None recorded. Mental Status None recorded. Family History Relationship Description Onset Age of this Age Resolved Age Notes LastModified by Organization Details LastModified Time Mother Atrial fibrillation [email or web address] Not available 15:19:09 Father Harmful pattern of use of alcohol 55 [email or web address] Not available 2017 15:23:55 Medical History Condition Response Coronary Artery Disease N Gout N Blood Diseases N Kidney Stones N Hyperthyroidism N Blood Transfusion N Breast Cancer N Depression N COPD N Hypothyroidism N Lung Disease N Defects or Inherited Disease N Anesthesia Complications N Anxiety Disorder N Meniere's disease N Muscle, Joint, or Bone Problems N Obesity Y Vision or Eye Problems Y Arthritis N Polyps N Infertility N Mental Disorder N Cancer N Varicosities N Stroke N Endometriosis N Bladder or Kidney Problems N High Cholesterol N Liver Disease N Fibromyalgia N Kidney Disease N Allergies/Hayfever Y Heart Problems N Hospitalizations Y Thyroid Problems N GI Problems N Skin Problems Y Eating Disorder Y Anemia N MRSA exposure N Constipation N Mental Illness N Ovarian Cancer N Diabetes N Seizures/Epilepsy N Tuberculosis N Congestive Heart Failure (CHF) N Eczema Y Diverticulitis N Abuse/Domestic Violence N Asthma N Reflux/GERD N Hepatitis N Heart Disease N Chronic Ear Infections N Osteoporosis N Chicken Pox Y Autism Spectrum Disorder (ASD) N Thrombophilias N Gynecological History Statement/Question Response If Post Menopausal, Age at Menopause 48 Sexually Active? N On BCP's at Conception? N HPV Vaccine N Date of Last Pap Smear 10/08/2015 Sexual Problems? N Current Control Method Menopause Most Recent Mammogram 10/08/2016 Age at Menarche 14 Age at First Child 28 Obstetrics History GPAL:G 0 P 0 0 0 0 Immunizations Vaccine Type Date Status Note Provider Nam e and Address Organization Details Recorded Time Hep A, adult 9 [facility]2018 10:49:48 Tdap 3 completed Delmi Nicholson NP, [address] [place], [address], [facility] 12/30/2018 06:51:29 Influenza, split virus, quadrivalent, preservative 0 completed Raheem Marvin DO [address] [place] [address], [address], [facility] 07/11/2020 11:32:46 Past Encounters Encounter ID Performer Location Encounter Start Date Encounter Closed Date Diagnosis/Indication Diagnosis SNOMED-CT Code Diagnosis ICD10 Code Diagnosis Note [id number] Raheem Marvin [facility] [address] [facility],[place] [address] 02/19/2018 15:10:02 02/20/2018 08:52:58 Adult health examination 650928014 Z00.01 check labs including lipid profile up to date mammogram Obesity 201709012 E66.9 see discussion notes advise against Atkins ketogenic diet, re: lack fruits and eventual failure Occult blo od detected in feces 39070522 R19.5 Psoriasis 6879542 L40.9 follow with rheumatolo gy Allergic rhinitis 120179 04 J30.2 currently mild [id number] Raheem Marvin DO [facility] [address] [facility] [address] 08/27/2018 15:28:37 08/27/2018 16:43:39 Diarrhea 97428007 R19.7 prn imodium Psoriasis 8313511 L40.9 on [facility] [id number] Raheem Cadena DO Shavonne [facility] [address] [facility] [place] [address] 03/31/2020 08:55:19 03/31/2020 12:03:21 Renewal of prescription 732892463 Z76.0 Adult heal th examination 829665952 Z00.00 no concerns today, does have a UTI, will treat and send out urine [id number] Raheem Cadena DO [place] [facility] [address] [facility],[place] [address] 06/02/2020 13:56:49 06/02/2020 14:22:26 Urinary incontinence 374932760 R32 will have her see urology Mass of neck 532628724 R 22.1 will r/u concerning findings Health Concerns Section Related Observation LastModified by Organization Detai ls LastModified Time None Recorded Concern Status LastModified by Organization Details LastModified Time None Recorded Advance Directives Directive None Recorded Payers Encounter Date Sequence Insurance Name Policy Number Policy Ware Covered Member ID Ware Member ID Guarantor Name 02/19/2018 1 [facility] [id number] Felipa Avendano [id number] Felipa Avendano 08/27/2018 1 [facility] [id number] Felipa Avendano [id number] Felipa Avendano 03/31/2020 1 [facility] [id number] Felipa Gonzales Ferriter [id number] Felipa Morganiter 06/02/2020 1 [facility] [id number] Felipa Gonzales Ferriter [id number] Felipa Avendano Notes Date Note Type Note Provider Name a nd Address Organization Details Recorded Time 8 text/html Annual WellnessReported bypatient.Diet and Nutrition:discussed portion control; discussed diet improvement Fracture Risk:no history of fractures; no recent explained fracture; no sudden unexplained fractures; no previous musculoskeletal injuries Physical Activity:does not exercise on a regular basis;deconditioned due to sedentary lifestyle Additional Lifestyle Factors:no tobacco use Depression Risk:never feels sad, empty, or tearful; no feelings of worthlessness or guilt; no thoughts of suicide; no history of depression; no history of mood disorders Hearing:no loss of hearing Vision:no vision problems; wears glasses Wants to discuss weight loss Tried Atkins in past and lost 100 lbs, but put it all back on Alos concerns re: psoriasis, off Humira, did not want another injectable, however ortesla not covered if hasn't failed two injectables, didn;t like getting liver checks all the time and has two new areas of psoriasis didn't have prior to starting Humira Ortesla may have side effect of weight loss Delmi Nicholson NP, [address] [place], [address], [facility] 02/19/2018 17:52:39 8 text/html 1 week ago awoke and felt fine, but had watery diarrhea all day That evening, at movies- ate popcorn and vomited No further vomiting Since then alternating liquid and soft stools No fever Few weeks ago went to [place]- no international travel 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 psoriasis better No recent antibiotics Colonoscopy 3 weeks ago, 1 polyp Has not been to [facility] or spent time in hospital Denies unexplained weight loss, BRBPR or hematuria, dysuria Delmi Nicholson NP, [address] [place], [address], [facility] 08/27/2018 16:39:37 0 text/html Annual WellnessReported bypatient.Diet and Nutrition:discussed vitamin and supplement use; discussed portion control; discussed maintaining calcium balance; discussed diet improvement Fracture Risk:no history of fractures; no recent explained fracture; no sudden unexplained fractures; no previous musculoskeletal injuries Physical Activity:discussed weightbearing activities; discussed exercise habits Additional Lifestyle Factors:no tobacco use; no alcohol intake Depression Risk:history of mood disorders;history of depression; was having side effects of depression with medication, stopped it feeling better Hearing:no loss of hearing Vision:no vision problems SOURAV JONES [address] [place], [address], [facility] 03/31/2020 09:27:31 0 text/html mass on the neck the patient reports that SOURAV JONES [address] [facility], [place], [address], [place] [facility] 06/02/2020 14:16:08 OBGyn Episode No OBEpisode recorded.
--- OUTSIDE RECORDS SUMMARY | 2025-02-09 07:08 | XMS_ITS | Patient Health Record ---
Author Organization [facility] Address [address] [place] [address] Care Team Providers Care Patient Observation Assistant Name Role Phone Emir CARMICHAEL [place] Primary Care Provider Benson Wall Unavailable [phone] Allergies Allergen (clinical drug ingredient) Drug/Non Drug Allergy documented on EMR Reaction Allergy Type Onset Date Status BEES (uncoded) Unknown Allergy Activ e Reason For Referral No Information Medications Medication SIG (Take, Route, Frequency, Duration) [...] Interpretation Negative Section Notes: Nonsmoker; no alcohol Nonsmoker; no alcohol Problems Problem Type SNOMED Code ICD Code Onset Dates Problem Status W/U Status Risk Notes Problem [id number] Encounter for screening for malignant neoplasm of colon (Z12.11) Active confirmed Problem History of polyp of colon (situation) (224175615) Personal history of colonic polyps (Z86.010) Active confirmed Problem Diverticulosis o f large intestine without perforation or abscess without bleeding (K57.30) Active confirmed Problem [id number] Preprocedural examination (Z01.818) Active confirmed Problem [id number] Diarrhea, unspecified type (R19.7) Active confirmed Vital Signs Blood pressure diastolic 00 mm Hg 05/22/2024 Height 69 in 05/22/2024 Blood pressure systolic 00 mm Hg 05/22/2024 Weight 249 lbs 05/22/2024 BMI 36.77 kg/m2 05/22/2024 Encounters Encounter Location Date Provider Diagnosis [facility] [place] Outpatient [address] [place], [place] [id number] 08/18/2024 Benson Lloyd Colon cancer screeni ng Z12.11 ; Personal history of colonic polyps Z86.0100 ; Diverticulosis of large intestine without perforation or abscess without bleeding K57.30 and Other hemorrhoids K64.8 [facility] [address] [place] [address] 05/22/2024 Benson Lloyd Encounter for screen ing for malignant neoplasm of colon Z12.11 ; Preprocedural examination Z01.818 and Personal history of colonic polyps Z86.010 Assessments Encounter Date Diagnosis (ICD Code) Assessment Notes Treatment Notes Treatment Clinical Notes Section Notes 08/18/2024 Colon cancer screening (ICD-10 - Z12.11) 08/18/2024 Personal history of colonic polyps (ICD-10 - Z86.0100) 05/22/2024 Encounter for screening for malignant neoplasm [...] to keep you advised of her progress. 08/18/2024 Diverticulosis of large intestine without perforation or abscess without bleeding (ICD-10 - K57.30) 05/22/2024 Personal history of colonic polyps (ICD-10 [...] to keep you advised of her progress. 08/18/2024 Other hemorrhoids (ICD-10 - K64.8) Plan Of Treatment Pending Test Test Name Order Date CLOSTRIDIUM DIFF TOXIN A&B (C DIFF) 08/09 GIARDIA AG, STOOL EIA 08/27/2018 OVA & PARASITES (O&P) 08/27/2018 ROUTINE CULTURE 08/27/2018 STOOL WBC 08/27/2018 Future Test Test Name Order Date COLONOSCOPY 06/04/2018 COLONOSCOPY 05/22/2024 Insurance Providers Payer Name Payer Address Payer Phone Subscriber Number Group Number Insured Name Patient Relationship to Insured Coverage Start Date Coverage End Date [facility] [address] [place] [phone] [id number] Self - patient is the insured Medical (General) History Medical History History ICD Code Psoriasis Denies VA,DM,CVA,Lung disease,renal dise ase Surgical History Surgery Date(Month/Year) 1993 Fibroid removal 1993 Tonsillectomy and adenoidectomy 1976 Pilonidal cyst excision 1984 Facial plastic surgery for dog bite 1969 Anal skin tag removed in 2004
[2025-02-09 07:25] LABS: MANUAL DIFF FLAG NO
[2025-02-09 07:51] LABS: Appearance Urine Clear; Color Urine Yellow; Glucose Urine UA Negative (Negative); Leukocyte Esterase Urine Trace (Negative); Nitrite Urine Negative (Negative); UMIC TRIGGER UACC YES; Urine Blood Trace (Negative); Urine Ketones Negative (Negative); Urine Protein Negative (Neg-Trace)
[2025-02-09 07:52] LABS: Basophils Percent Auto 0.6 % (0-2); Eosinophils Absolute Auto 0.2 X10*3/uL (0.0-0.4); Eosinophils Percent Auto 2.4 % (0-4); Hematocrit 39.6 % (37.0-47.0); Hemoglobin 12.7 g/dl (12.0-16.0); Imm Gran Abs Auto 0.01 X10*3/uL (0.00-0.03); Imm Gran Pct Auto 0.1 % (0.0-0.4); Lymphocytes Absolute Auto 2.8 X10*3/uL (1.2-4.9); Lymphocytes Percent Auto 38.3 % (20-40); Mean Corpuscular HGB Conc 32.1 g/dl (31.0-35.0); Mean Corpuscular Hemoglobin 28.2 pg (27.0-33.0); Mean Platelet Volume 8.7 fL (9.4-12.3); Monocytes Absolute Auto 0.7 X10*3/uL (0.1-1.2); Monocytes Percent Auto 10.3 % (2-11); Neutrophils Absolute Auto 3.5 x10*3/uL (2.0-8.3); Neutrophils Percent Auto 48.3 % (45-73); Platelet Count 298 X10*3/uL (160-400); Red Cell Distribution Width 13.5 % (11.0-16.0); White Blood Count 7.2 X10*3/uL (4.8-10.8)
[2025-02-09 07:57] LABS: Bacteria Urine None Seen (None Seen); Hyaline Casts Urine 0-2 /LPF (0-2); Squamous Epithelial Cell Urine 0-2 /HPF (0-2); WBC Urine 0-5 /HPF (0-5)
[2025-02-09 08:29] LABS: Alanine Aminotransferase 17 U/L (0-31); Albumin Level 4.2 g/dL (3.5-5.0); Alkaline Phosphatase 61 U/L (39-117); Anion Gap 9 (12-20); Aspartate Amino Transferase 20 U/L (5-31); Bilirubin Total 0.5 mg/dL (0.0-1.0); Blood Urea Nitrogen 17 mg/dL (9-16); Calcium 9.3 mg/dL (8.4-10.2); Carbon Dioxide 30 mmol/L (22-29); Chloride 107 mmol/L (96-108); Cholesterol 187 mg/dL (<200); Estimated Glomerular Filt Rate > 60; Glucose Fasting 85 mg/dL (60-99); HDL Cholesterol 59 mg/dL (>40); LDL Cholesterol Calculated 109 mg/dL (<100); Potassium 4.4 mmol/L (3.3-5.1); Sodium 142 mmol/L (135-145); Total Protein 7.1 g/dL (6.5-8.0); Triglycerides 95 mg/dL (<150)
[2025-02-09 08:47] LABS: TSH reflex Free T4 2.19 uIU/mL (0.32-4.0); Vitamin D 25-OH Total 22.6 ng/mL (>30)
[2025-02-09 08:53] LABS: Folate 8.1 ng/mL (> or = 4.0); Vitamin B12 819 pg/mL (200-900)
== END 2025-02-09 07:05 | disposition home or self-care (01) ==
LOC: HO.LAB 07:04
PROVIDERS: PCP Internal Medicine; Visit Provider Internal Medicine
DX: Z00.00 Encounter for general adult medical examination without abnormal findings (principal); E78.00 Pure hypercholesterolemia, unspecified; E55.9 Vitamin D deficiency, unspecified; D64.9 Anemia, unspecified; E53.8 Deficiency of other specified B group vitamins
CPT/HCPCS: 36415; 80053; 80061; 81001; 82306; 82607; 82746; 84443; 85025

== ENCOUNTER 2025-03-26 13:00 | Outpatient (AMB) | payer OTHER, SELFPAY ==
--- OUTSIDE RECORDS SUMMARY | 2024-05-22 05:40 | XMS_ITS ---
Author Organization [facility] Address [address] [place] [address] Care Team Providers Care Business Analytics Faculty Member Name Role Phone Emir CARMICHAEL, [place] Primary Care Provider Benson Wall [phone] Allergies Allergen (clinical drug ingredient) Drug/Non Drug Allergy documented on EMR Reaction Allergy Type Onset Date Status BEES (uncoded) Unknown Allergy Activ e REASON FOR VISIT Patient presents today for a screening colon Medications Medication SIG (Take, Route, Frequency, Duration) Notes Start Date End Date Status Semaglutide (1 MG/DOSE) 4 MG/3ML as directed Subcutaneous Act dana Social History Tobacco Use: Social History Observation Description Date Details (start date - stop date) Never Smoker NA - NA Tobacco Use/Smoking Question Answer Notes Patient is a nonsmoker Alcohol Screen Question Answer Notes Did you have a drink containing alcohol in the p ast year? No Points 0 Interpretation Negative Section Notes: Nonsmoker; no alcohol Problems Problem Type SNOMED Code ICD Code Onset Dates Problem Status W/U Status Risk Notes Problem History of polyp of colon (situation) (481264351) Personal history of colonic polyps (Z86.010) Active confirmed Vital Signs Blood pressure systolic 00 mm Hg 05/22/20 24 Blood pressure diastolic 00 mm Hg 024 Height 69 in 05/22/2024 Weight 249 lbs 05/22/2024 BMI 36.77 kg/m2 05/22/2024 Encounters Encounter Location Date Provider Diagnosis [facility] [address] [place] [address] 05/22/2024 Benson Lloyd Encounter for screen ing for malignant neoplasm of colon Z12.11 ; Preprocedural examination Z01.818 and Personal history of colonic polyps Z86.010 Assessments Encounter Date Diagnosis (ICD Code) Assessment Notes Treatment Notes Treatment Clinical Notes Section Notes 05/22/2024 Encounter for screening for malignant neoplasm of colon (ICD-10 - Z12.11) DO NOT TAKE THE SEMAGLUTIDE FOR AT LEAST 7 DAYS BEFORE THE COLONOSCOPY Overall, Dat appears quite well. I did recommend a followup colonoscopy for further screening purposes given her history of a tubular adenoma removed over 5 years ago. We did review the rationale for that in regard to colon cancer prevention. Full consent is obtained for this, including risks of bleeding and perforation. The procedure will be done with monitored anesthesia care. She was given the below instructions he guarding adjustment of her Semaglutide injection for the procedure. Dat was comfortable with this plan. Thank you again for allowing me to participate in Dat's care. I shall continue to keep you advised of her progress. 05/22/2024 Preprocedural examination (ICD-10 - Z01.818) Overall, Dat appears quite well. I did recommend a followup colonoscopy for further screening purposes given her history of a tubular adenoma removed over 5 years ago. We did review the rationale for that in regard to colon cancer prevention. Full consent is obtained for this, including risks of bleeding and perforation. The procedure will be done with monitored anesthesia care. She was given the below instructions he guarding adjustment of her Semaglutide injection for the procedure. Dat was comfortable with this plan. Thank you again for allowing me to participate in Dat's care. I shall continue to keep you advised of her progress. 05/22/2024 Personal history of colonic polyps (ICD-10 - Z86.010) Overall, Dat appears quite well. I did recommend a followup colonoscopy for further screening purposes given her history of a tubular adenoma removed over 5 years ago. We did review the rationale for that in regard to colon cancer prevention. Full consent is obtained for this, including risks of bleeding and perforation. The procedure will be done with monitored anesthesia care. She was given the below instructions he guarding adjustment of her Semaglutide injection for the procedure. Dat was comfortable with this plan. Thank you again for allowing me to participate in Dat's care. I shall continue to keep you advised of her progress. Plan Of Treatment Treatment Notes Assessment Notes Encounter for screening for malignant neoplasm of colon DO NOT TAKE THE SEMAGLUTIDE FOR AT LEAST 7 DAYS BEFORE THE COLONOSCOPY Future Test Test Name Order Date COLONOSCOPY 05/22/2024 Next Appt Details Follow Up: prn, Reason: Progress Notes * LIA RODRÍGUEZB: 7 (58 yo F)Acc No.[id number]:05/22/2024 Progress Notes Patient: DAT AUGUSTE Provider: Rina Lloyd MD :1965 A ge:58 Y S ex:Female Date:05/22/2024 Address:[address] [place], [place] [address] [facility] [place], [id number] Pcp:Pedro Luis Field MD Subjective: * Chief Complaints: * P fredi presents today for a screening colon * HPI: i ncontinence: I saw Dat in the office today for evaluation of her personal history of a tubular adenoma of the colon and need for colorectal cancer screening. I last saw Dat in 2018, at which time she underwent a screening colonoscopy with removal of a small tubular adenoma. She presently feels well. She enjoys a good appetite, without any significant heartburn or dysphagia. Her bowel movements have been regular and without any signs of bleeding. She denies any abdominal pain, jaundice, nor unintentional weight loss. She has lost approximately 90 pounds with a combination of dieting and use of a weekly Semaglutide injection. She does have a family history of colon cancer in a maternal grandmother and maternal uncle. * ROS: G eneral/Constitutional: Change in appetite d enies. C hills d enies. F atigue d enies. O phthalmologic: Comments a ll negative. E NT: Comments a ll negative. R espiratory: hemoptysis d enies. C ough d enies. ? C ardiovascular: Chest pain d enies. O rthopnea d enies. ? G astrointestinal: Comments S HPI for details. G enitourinary: Hematuria d enies. D ysuria d enies. ? M usculoskeletal: Painful joints K nee arthritis bilaterally. W eakness?denies. S kin: Itching d enies. R lamont d enies. N eurologic: Headache d enies. S eizures d enies. ? P sychiatric: Comments a ll negative. * Medical History: * Surgical History: C -section 1993Fibroid removal 1993Tonsillectomy and adenoidectomy 1976Pilonidal cyst excision 1984Facial plastic surgery for dog bite 1970Anal skin tag removed in 2004 * Hospitalization/Major Diagno stic Procedure: N o Hospitalization History. * Family History: F ather: , alcoholism. M other: , Afib, diagnosed with Heart disease. M ahsan Grand Mother: , in her 80's, diagnosed with Colon cancer. M atelisa uncle: , In his 60's, diagnosed with Colon cancer. * Social History: T obacco Use: T obacco Use/Smoking P atient is a n onsmoker. D rugs/Alcohol: A lcohol Screen D id you have a drink containing alcohol in the past year? N o, P oints 0 , I nterpretation N egative. M iscellaneous: M arital status: . 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 N onsmoker; no alcohol. * Medications: T akingSemaglutide (1 MG/DOSE) 4 MG/3ML Solution Pen-injector as directed Subcutaneous Medication List reviewed and reconciled with the patientTaking Semaglutide (1 MG/DOSE) 4 MG/3ML Solution Pen-injector as directed Subcutaneous Medication List reviewed and reconciled with the patient * Allergies: B EESyes[Allergies Verified] Objective: * Vitals: W t: 249 lbs, Ht: 69 in, BMI:36.77 Index, BP: 00/00 mm Hg. * Examination: G eneral Examination: GENERAL APPEARANCE: p leasant, well nourished, well developed, in no acute distress. EYES: s clera non-icteric. ORAL CAVITY: m ucosa moist. NECK/THYROID: n o cervical lymphadenopathy, neck supple.? SKIN: n onjaundiced, no spider angiomata. HEART: S 1, S2 normal. LUNGS: c lear to auscultation bilaterally. ABDOMEN: n ormal bowel sounds, no guarding or rigidity, no guarding or rigidity, no masses palpable, soft, nontender, nondistended. EXTREMITIES: n o edema. NEUROLOGIC: a lert and oriented. Assessment: * Assessment: 1. P reprocedural examination - Z01.818 (Primary) 2 . E ncounter for screening for malignant neoplasm of colon - Z12.11 3 . P ersonal history of colonic polyps - Z86.010 Overall, Dat appears quite well. I did recommend a followup colonoscopy for further screening purposes given her history of a tubular adenoma removed over 5 years ago. We did review the rationale for that in regard to colon cancer prevention. Full consent is obtained for this, including risks of bleeding and perforation. The procedure will be done with monitored anesthesia care. She was given the below instructions he guarding adjustment of her Semaglutide injection for the procedure. Dat was comfortable with this plan. Thank you again for allowing me to participate in Dat's care. I shall continue to keep you advised of her progress. Plan: * Treatment: Notes: DO NOT TAKE THE SEMAGLUTIDE FOR AT LEAST 7 DAYS BEFORE THE COLONOSCOPY?? 2.?Personal history of colonic polyps?Procedure: COLONOSCOPY (Ordered for 05/22/2024)* with MACsched for 08/18/24 a t 2:30 pmmiralax * Procedure Codes: 3 017F COLORECTAL CA SCREEN DOC [id number] [id number] BP SCR NOT PRFRM REC REASON NOS * Preventive Medicine: Counseling: C are goal follow-up plan: A chantell Normal BMI Follow-up G iving encouragement to exercise, B KS management provided Y es. * Follow Up: p rn * * Sign off status: Completed true * Provider: Rina Lloyd MD Date: 0 05/22/2024 Generated for Ras mcmullen/Linda/Adolfosmitting on: 0 03/26/2025 02:06 PM EDT History and Physical Notes * HPI (History of Present Illness) Category Sub-Category Detail Notes Category Not es incontinence I saw Dat in the office today for evaluation of her personal history of a tubular adenoma of the colon and need for colorectal cancer screening. I last saw Dat in 2018, at which time she underwent a screening colonoscopy with removal of a small tubular adenoma. She presently feels well. She enjoys a good appetite, without any significant heartburn or dysphagia. Her bowel movements have been regular and without any signs of bleeding. She denies any abdominal pain, jaundice, nor unintentional weight loss. She has lost approximately 90 pounds with a combination of dieting and use of a weekly Semaglutide injection. She does have a family history of colon cancer in a maternal grandmother and maternal uncle. Examination Category Sub-Category Detail Notes Category Not es General Examination GENERAL APPEARANCE: pleasant , well nourished, well developed, in no acute distress HEAD: EYES: sclera non-icteric EARS: NOSE: THROAT: NECK/THYROID: no cervical lymphade nopathy, neck supple HEART: S1, S2 normal CHEST: LUNGS: clear to auscultatio n bilaterally ABDOMEN: normal bowel sounds, no guarding or rigidity, no guarding or rigidity, no masses palpable, soft, nontender, nondistended NEUROLOGIC: alert and oriented SKIN: nonjaundiced, no spi lela angiomata EXTREMITIES: no edema PERIPHERAL PULSES: BACK: BREASTS: MUSCULOSKELETAL: MALE GENITOURINARY: LYMPH NODES: RECTAL EXAM: FEMALE GENITOURINARY: ORAL CAVITY: mucosa moist
[2025-03-26 13:01] VITALS: BP 116/76; PULSE 75; RESP 20; TEMP 37.1; O2SAT 96; BMI 38.0
--- NOTE | 2025-03-26 13:01 | MHC.PC.OV ---
Vital Signs 03/26/25 13:01 Height 5 ft 9 in Weight 257 lb 3.2 oz BMI 38.0 BP 116/76 Blood Pressure Location Lt brachial Position Sitting Respiration 20 Pulse 75 Pulse Source Pulse Oximeter Temp 98.7 F Temp Source Oral Pulse Oximetry (%) 96 Oxygen Delivery Method Room Air Intake Visit Reasons: [facility] April 15 (lt) & April 29 (Rt) Intake Note: Patient is here for a Pre-op for cataract surgery scheduled with [facility] at an outpatient ambulatory center on OS: 04/15/2025 and OD: 04/29/2025. 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 Required: No Accompanied by: Self / Same As Patient Allergies bee pollen (bee stings) Allergy (Severe, Verified 03/26/25 13:15) Anaphylaxis adhesive Adverse Reaction (Intermediate, Verified 03/26/25 13:15) steri strips-topical reaction Medication List - Last Reconciled 03/26/25 by GEN Bowers multivitamin 1 tab PO DAILY nystatin 1 appl topical TID PRN semaglutide mg subcut Tobacco use date assessed: 03/26/25 Dental Screening Dental Screen Date: 03/26/25 Did you have a dental visit in the last 12 months?: Yes Did you have a dental problem in the last 6 months where you did not have access to dental care?: No Was dental information given to patient?: Patient has dentist HPI [facility] April 15 (lt) & April 29 (Rt) HPI Details The patient is 59 year old patient present preoperative clearance. The patient of Dr. Field. Last seen 07/15/24 in the office The patient is presenting with a near pre-preoperative evaluation for cataract surgery. Reports that she had cataract for over 3 years and has being monitor by her fabrics and material cutter. A steady decline in her eyes was noted and the cataract surgery was recommended. Surgeon/Location: Dr. Kiersten Newman at [facility] Anesthesia: MAC. The patient reports previous surgeries with general anesthesia with only needing medication for nausea. No nausea with MAC anesthesia. She denies any post surgical hypothermia or clotting disorder and she is not on any blood thinners. The patient takes semaglutide and she is aware that this medication has to be stopped a week before her surgery. Significant Medical History for obesity, vertigo, borderline high cholesterol and vitamin-D deficiency. Denies chest pain, SOB, heart palpitation and dizziness Denies abdominal pain/change in bowel habits Denies any urinary symptoms Patient reports recently having a colonoscopy that had poor visualization due to insufficient prepping. Per patient, cardiology said that she could do a Cologuard instead of repeating the colonoscopy. The patient had most of her needed blood works checked previously accept PT INR. We will send the patient to complete PT INR. [facility] Medical History Obesity, class 1 Vitamin D deficiency Insomnia Psoriasis Degenerative joint disease of left knee Morbid obesity with BMI of 45.0-49.9, adult Surgical History History of facial surgery History of surgery History of excision of pilonidal cyst Hx of laparoscopy History of colonoscopy History of S/P tonsillectomy and adenoidectomy Family History Mother COPD (chronic obstructive pulmonary disease) High blood pressure Father Alcoholic Other Substance abuse Social History Housing: House Alcohol intake: never Patient Tobacco Use Status: Never used Tobacco e-Cigarette/Vaping Use: Never Used Second Hand Smoke Exposure: No service: No Current occupational status: employed Cognitive needs: No Hearing needs: No Vision needs: Yes (Glasses) Questionnaire Thrive Questionnaire Date Thrive assessed: 03/26/25 I am a: Patient What is your living situation today?: I have a steady place to live Within the past 12 months, did the food you bought not last and you didn't have the money to get more?: Never true Within the past 12 months, did you worry whether your food would run out before you got money to buy more?: Never true Do you have trouble paying for medicines?: No Do you have trouble getting transportation to medical appointments?: No Do you have trouble paying your heating and electricity bill?: No Do you have trouble taking care of your child, family member or friend?: No Do you have trouble with day-to-day activities such as bathing, preparing meals, shopping, managing finances, etc.?: No Are you currently unemployed and looking for a job?: No Are you interested in more education?: No Please select the resources that you would like help with: None Currently or been in a relationship where the following occur: No concerns reported THRIVE Score: 0 AUDIT C Alcohol Use Questionnaire (AUDIT-C) 1. How often do you have a drink containing alcohol?: Never 3. How often do you have six or more drinks on one occasion?: Never Total Score: 0 Score Reviewed/Action Taken: No CHICHI-7 AMB Questionnaire CHICHI-7 Date CHICHI - 7 assessed: 07/15/24 Source: Developed by Drs. Benson Wise, Hodan Malhotra, Haider Maria and colleagues, with an educational sharon from [employer]. Physical exam (Primary Care) Vital Signs: Last Vital Signs Temp 98.7 F 03/26/25 13:01 Pulse 75 03/26/25 13:01 Resp 20 03/26/25 13:01 BP 116/76 03/26/25 13:01 Pulse Ox 96 03/26/25 13:01 Oxygen Delivery Method Room Air 03/26/25 13:01 BMI result Body Mass Index 38.0 Tobacco/Smoking Status: Tobacco use Status Tobacco use date assessed 03/26/25 03/26/25 13:14 Patient Tobacco Use Status Never used Tobacco 03/26/25 13:14 e-Cigarette/Vaping Use Never Used 03/26/25 13:14 Thrive Assessment: Date of Thrive Assessment Date Thrive assessed 03/26/25 03/26/25 13:14 Currently or been in a relationship where the following occur: No concerns reported Results Reviewed Results Reviewed: Laboratory Tests 02/09/25 02/09/25 07:23 07:25 WBC 7.2 RBC 4.50 Hgb 12.7 Hct 39.6 MCV 88.0 MCH 28.2 MCHC 32.1 RDW 13.5 Plt Count 298 MPV 8.7 L Immature Gran % (Auto) 0.1 Sodium 142 Potassium 4.4 Chloride 107 Carbon Dioxide 30 H Anion Gap 9 L BUN 17 H Creatinine 0.77 Estimated GFR > 60 Fasting Glucose 85 Calcium 9.3 Total Bilirubin 0.5 AST 20 ALT 17 Alkaline Phosphatase 61 Total Protein 7.1 Albumin 4.2 Triglycerides 95 Cholesterol 187 LDL Cholesterol, Calc 109 H HDL Cholesterol 59 Vitamin B12 819 25-OH Vitamin D Total 22.6 L Folate 8.1 TSH 2.19 Urine Color Yellow Urine Appearance Clear Urine pH 5.0 Ur Specific B[place] 1.020 Urine Protein Negative Urine Glucose (UA) Negative Urine Ketones Negative Urine Blood Trace H Urine Nitrite Negative Ur Leukocyte Esterase Trace H Urine RBC 3-5 H Urine WBC 0-5 Ur Squamous Epith Cells 0-2 Urine Bacteria None Seen Hyaline Casts 0-2 Coding Level of Care Code Est Pt Level 4 (97271) Diagnoses Preoperative clearance Z01.818 Borderline high cholesterol E78.9 Obesity (BMI 30-39.9) E66.9 Vitamin D deficiency E55.9 Vertigo R42 Other microscopic hematuria R31.29 Hematuria type: other microscopic Time Spent (min) 39 Assessment & Plan Assessment & Plan (1) Preoperative clearance: Code(s): Z01.818 - Encounter for other preprocedural examination Category: Medical Plan: Regarding preop clearance, the patient is at acceptable risk for proposed surgery once completing PT-INR that is within normal limits. Reviewed with the patient that no surgery is completely free of risk and that this examination is to assist the surgeon in reviewing informed consent. (2) Borderline high cholesterol: Code(s): E78.9 - Disorder of lipoprotein metabolism, unspecified Category: Medical Plan: ldl 109, t-chol 187 02/2025 Discussed lifestyle modifications including dietary changes and physical activity (3) Obesity (BMI 30-39.9): Code(s): E66.9 - Obesity, unspecified Category: Medical Plan: Discussed lifestyle modifications including dietary changes and physical activity (4) Vitamin D deficiency: Code(s): E55.9 - Vitamin D deficiency, unspecified Category: Medical Plan: vit D 22.6 02/2025 pt taking daily multivitamin Cholecalciferol 25 mcg daily added (5) Vertigo: Code(s): R42 - Dizziness and giddiness Category: Medical Plan: hx of vertigo due to motion sickness she has not experience this in a while Needed to be premedicated for nausea with general anesthesia (6) Hematuria: Code(s): R31.9 - Hematuria, unspecified Category: Medical Qualifiers: Hematuria type: other microscopic Qualified Code(s): R31.29 - Other microscopic hematuria Plan: Microscopic hematuria on two consecutive labs asymptomatic-will repeat UA and add urine cytology to furthre evaluate Orders: Orders UA CC w/rflx Micro + Cult 1 Week GEN Bowers R31.9 - Hematuria, unspecified Urine Cytology 1 Week GEN Bowers R31.9 - Hematuria, unspecified Prothrombin Time INR Today GEN Bowers Z01.818 - Encounter for other preprocedural examination Referrals Cologuard Test GEN Bowers Z12.11 - Encounter for screening for malignant neoplasm of colon, Z12.12 - Encounter for screening for malignant neoplasm of rectum Medications: New cholecalciferol (vitamin D3) 25 mcg PO DAILY 90 caps 3RF GEN Bowers Changed From nystatin 1 appl topical TID 10 days 60 grams 3RF To nystatin 1 appl topical TID PRN Pedro Luis Field MD
--- NOTE | 2025-03-26 22:39 | MHC.PC.OV ---
Vital Signs 03/26/25 13:01 Height 5 ft 9 in Weight 257 lb 3.2 oz BMI 38.0 BP 116/76 Blood Pressure Location Lt brachial Position Sitting Respiration 20 Pulse 75 Pulse Source Pulse Oximeter Temp 98.7 F Temp Source Oral Pulse Oximetry (%) 96 Oxygen Delivery Method Room Air Intake Visit Reasons: [facility] April 15 (lt) & April 29 (Rt) Allergies bee pollen (bee stings) Allergy (Severe, Verified 03/26/25 13:15) Anaphylaxis adhesive Adverse Reaction (Intermediate, Verified 03/26/25 13:15) steri strips-topical reaction Medication List - Last Reconciled 03/26/25 by GEN Bowers multivitamin 1 tab PO DAILY nystatin 1 appl topical TID PRN semaglutide mg subcut Tobacco use date assessed: 03/26/25 Dental Screening Dental Screen Date: 03/26/25 Did you have a dental visit in the last 12 months?: Yes Did you have a dental problem in the last 6 months where you did not have access to dental care?: No Was dental information given to patient?: Patient has dentist HPI [facility] April 15 (lt) & April 29 (Rt) HPI Details The patient is 59 year old patient present preoperative clearance. The patient of Dr. Field. Last seen 07/15/24 in the office The patient is presenting with a near pre-preoperative evaluation for cataract surgery. 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 A steady decline in her eyes was noted and the cataract surgery was recommended. Surgeon/Location: Dr. Kiersten Newman at [facility] Anesthesia: MAC. The patient reports previous surgeries with general anesthesia with only needing medication for nausea. No nausea with MAC anesthesia. She denies any post surgical hypothermia or clotting disorder and she is not on any blood thinners. The patient takes semaglutide and she is aware that this medication has to be stopped a week before her surgery. Significant Medical History for obesity, vertigo, borderline high cholesterol and vitamin-D deficiency. Denies chest pain, SOB, heart palpitation and dizziness Denies abdominal pain/change in bowel habits Denies any urinary symptoms Patient reports recently having a colonoscopy that had poor visualization due to insufficient prepping. Per patient, cardiology said that she could do a Cologuard instead of repeating the colonoscopy. The patient had most of her needed blood works checked previously accept PT INR. We will send the patient to complete PT INR. [facility] Medical History Obesity, class 1 Vitamin D deficiency Insomnia Psoriasis Degenerative joint disease of left knee Morbid obesity with BMI of 45.0-49.9, adult Surgical History History of facial surgery History of surgery History of excision of pilonidal cyst Hx of laparoscopy History of colonoscopy History of S/P tonsillectomy and adenoidectomy Family History Mother COPD (chronic obstructive pulmonary disease) High blood pressure Father Alcoholic Other Substance abuse Social History Housing: House Alcohol intake: never Patient Tobacco Use Status: Never used Tobacco e-Cigarette/Vaping Use: Never Used Second Hand Smoke Exposure: No service: No Current occupational status: employed Cognitive needs: No Hearing needs: No Vision needs: Yes (Glasses) Questionnaire Thrive Questionnaire Date Thrive assessed: 03/26/25 I am a: Patient What is your living situation today?: I have a steady place to live Within the past 12 months, did the food you bought not last and you didn't have the money to get more?: Never true Within the past 12 months, did you worry whether your food would run out before you got money to buy more?: Never true Do you have trouble paying for medicines?: No Do you have trouble getting transportation to medical appointments?: No Do you have trouble paying your heating and electricity bill?: No Do you have trouble taking care of your child, family member or friend?: No Do you have trouble with day-to-day activities such as bathing, preparing meals, shopping, managing finances, etc.?: No Are you currently unemployed and looking for a job?: No Are you interested in more education?: No Please select the resources that you would like help with: None Currently or been in a relationship where the following occur: No concerns reported THRIVE Score: 0 AUDIT C Alcohol Use Questionnaire (AUDIT-C) 1. How often do you have a drink containing alcohol?: Never 3. How often do you have six or more drinks on one occasion?: Never Total Score: 0 Score Reviewed/Action Taken: No CHICHI-7 AMB Questionnaire CHICHI-7 Date CHICHI - 7 assessed: 07/15/24 Source: Developed by Drs. Benson Wise, Hodan Malhotra, Haider Maria and colleagues, with an educational sharon from [employer]. Review of Systems Const Denies headache(s) Eyes Reports change in vision (hx of cataract ou) and Denies loss of vision ENT Denies vertigo, Denies dizziness, Denies headache(s) and Denies sore throat Card Denies chest pain, Denies leg edema and Denies lightheadedness Resp Denies cough, Denies hemoptysis and Denies wheezing GI Denies abdominal pain, Denies melena, Denies constipation, Denies diarrhea and Denies vomiting Denies urinary frequency, Denies dysuria and Denies urinary urgency Musc Denies arthralgias, Denies joint swelling, Denies numbness and Denies tingling Neuro Denies Abnormal speech present, Denies behavioral changes, Denies vertigo, Denies dizziness, Denies headache(s), Denies loss of vision, Denies memory loss, Denies numbness and Denies tingling Psych Denies anxiety, Denies behavioral changes, Denies depression, Denies memory loss and Denies panic attacks Orion/Lymph Denies easy bleeding and Denies easy bruising Aller/Immun Denies wheezing Physical exam (Primary Care) Vital Signs: Last Vital Signs Temp 98.7 F 03/26/25 13:01 Pulse 75 03/26/25 13:01 Resp 20 03/26/25 13:01 BP 116/76 03/26/25 13:01 Pulse Ox 96 03/26/25 13:01 Oxygen Delivery Method Room Air 03/26/25 13:01 BMI result Body Mass Index 38.0 Tobacco/Smoking Status: Tobacco use Status Tobacco use date assessed 03/26/25 03/26/25 22:42 Patient Tobacco Use Status Never used Tobacco 03/26/25 22:42 e-Cigarette/Vaping Use Never Used 03/26/25 22:42 Thrive Assessment: Date of Thrive Assessment Date Thrive assessed 03/26/25 03/26/25 22:42 Currently or been in a relationship where the following occur: No concerns reported Const General: healthy appearing, no acute distress, alert and awake Nutritional Appearance: well nourished Orientation/consciousness: oriented to person, oriented to place and oriented to [facility]: TM's normal bilaterally General nose exam: Normal nasal mucous membranes and turbinates present Eyes Conjunctivae: conjunctivae normal Sclerae: sclerae normal Pupils: Equal, round and reactive pupils present Neck Neck: Yes no lymphadenopathy and Yes no JVD Thyroid: Thyroid normal Carotids: no bruits Resp Effort & Inspection: normal respiratory effort and not tachypneic Auscultation: no crackles, no rales, no rhonchi and no wheezes Cardio Rate: regular rate Rhythm: regular rhythm Heart sounds: no murmurs and normal S1 and S2 GI Palpation (GI): Soft to palpation, nontender, no hepatomegaly and no splenomegaly Auscultation: normal bowel sounds Skin General skin exam: no rashes or lesions noted and dry skin Neuro General: oriented to person, oriented to place and oriented to time Cranial nerves: Yes Equal, round and reactive pupils present Speech: No Abnormal speech present Gait exam (Neuro): Normal gait present Motor exam (neuro): no tremor noted Extrem Right upper extremity: full ROM Left upper extremity: full ROM Right lower extremity: full ROM; no edema Left lower extremity: full ROM; no edema Psych Mental Status: mental status grossly normal Speech and movement: Normal speech and movement present Affect: normal affect Attitude: cooperative Thought process: Normal thought process present Results Reviewed Results Reviewed: Laboratory Tests 02/09/25 02/09/25 07:23 07:25 WBC 7.2 RBC 4.50 Hgb 12.7 Hct 39.6 MCV 88.0 MCH 28.2 MCHC 32.1 RDW 13.5 Plt Count 298 Sodium 142 Potassium 4.4 Chloride 107 Carbon Dioxide 30 H Anion Gap 9 L BUN 17 H Creatinine 0.77 Estimated GFR > 60 Fasting Glucose 85 Calcium 9.3 Total Bilirubin 0.5 AST 20 ALT 17 Alkaline Phosphatase 61 Total Protein 7.1 Albumin 4.2 Cholesterol 187 LDL Cholesterol, Calc 109 H HDL Cholesterol 59 Vitamin B12 819 25-OH Vitamin D Total 22.6 L Folate 8.1 TSH 2.19 Urine Color Yellow Urine Appearance Clear Urine pH 5.0 Ur Specific Allen 1.020 Urine Protein Negative Urine Glucose (UA) Negative Urine Ketones Negative Urine Blood Trace H Urine Nitrite Negative Ur Leukocyte Esterase Trace H Urine RBC 3-5 H Urine WBC 0-5 Ur Squamous Epith Cells 0-2 Hyaline Casts 0-2 Coding Level of Care Code Est Pt Level 4 (36288) Diagnoses Preoperative clearance Z01.818 Borderline high cholesterol E78.9 Obesity (BMI 30-39.9) E66.9 Vitamin D deficiency E55.9 Vertigo R42 Other microscopic hematuria R31.29 Hematuria type: other microscopic Time Spent (min) 39 Assessment & Plan Assessment & Plan (1) Preoperative clearance: Code(s): Z01.818 - Encounter for other preprocedural examination Category: Medical Plan: Regarding preop clearance, the patient is at acceptable risk for proposed surgery once completing PT-INR that is within normal limits. Reviewed with the patient that no surgery is completely free of risk and that this examination is to assist the surgeon in reviewing informed consent. (2) Borderline high cholesterol: Code(s): E78.9 - Disorder of lipoprotein metabolism, unspecified Category: Medical Plan: ldl 109, t-chol 187 02/2025 Discussed lifestyle modifications including dietary changes and physical activity (3) Obesity (BMI 30-39.9): Code(s): E66.9 - Obesity, unspecified Category: Medical Plan: Discussed lifestyle modifications including dietary changes and physical activity (4) Vitamin D deficiency: Code(s): E55.9 - Vitamin D deficiency, unspecified Category: Medical Plan: vit D 22.6 02/2025 pt taking daily multivitamin Cholecalciferol 25 mcg daily added (5) Vertigo: Code(s): R42 - Dizziness and giddiness Category: Medical Plan: hx of vertigo due to motion sickness she has not experience this in a while Needed to be premedicated for nausea with general anesthesia (6) Hematuria: Code(s): R31.9 - Hematuria, unspecified Category: Medical Qualifiers: Hematuria type: other microscopic Qualified Code(s): R31.29 - Other microscopic hematuria Plan: Microscopic hematuria on two consecutive labs asymptomatic-will repeat UA and add urine cytology to furthre evaluate Orders: Orders UA CC w/rflx Micro + Cult 1 Week GEN Bowers R31.9 - Hematuria, unspecified Urine Cytology 1 Week GEN Bowers R31.9 - Hematuria, unspecified Prothrombin Time INR Today GEN Bowers Z01.818 - Encounter for other preprocedural examination Referrals Cologuard Test GEN Bowers Z12.11 - Encounter for screening for malignant neoplasm of colon, Z12.12 - Encounter for screening for malignant neoplasm of rectum Medications: New cholecalciferol (vitamin D3) 25 mcg PO DAILY 90 caps 3RF GEN Bowers Changed From nystatin 1 appl topical TID 10 days 60 grams 3RF To nystatin 1 appl topical TID PRN Pedro Luis Field MD
== END 2025-03-26 13:43 | disposition home or self-care (01) ==
PROVIDERS: PCP Internal Medicine
DX: E78.9 Disorder of lipoprotein metabolism, unspecified (principal); Z01.818 Encounter for other preprocedural examination; E66.9 Obesity, unspecified; Z68.38 Body mass index [BMI] 38.0-38.9, adult; E55.9 Vitamin D deficiency, unspecified; R42 Dizziness and giddiness; R31.29 Other microscopic hematuria

== ENCOUNTER → 2025-03-26 13:00 | Outpatient (BNVA) | payer OTHER, SELFPAY | PROVIDERS: PCP Internal Medicine | DX: Z13.89 Encounter for screening for other disorder (principal) ==

== ENCOUNTER 2025-04-27 11:22 | Outpatient (REF) | payer OTHER, SELFPAY ==
--- OUTSIDE RECORDS SUMMARY | 2025-04-27 12:30 | XMS_ITS | Patient Health Record ---
Author Organization [facility] Address [address] [place] [address] Care Team Providers Care Bag Sewer Name Role Phone Emir CARMICHAEL [place] Primary Care Provider Benson Wall Unavailable [phone] Allergies Allergen (clinical drug ingredient) Drug/Non Drug [...] Problem Status W/U Status Risk Notes Problem [id number] Encounter for screening for malignant neoplasm of colon (Z12.11) Active confirmed Problem History of polyp of colon (situation) (161688135) Personal history of colonic polyps (Z86.010) Active confirmed Problem Diverticulosis o f large intestine without perforation or abscess without bleeding (K57.30) Active confirmed Problem [id number] Preprocedural examination (Z01.818) Active confirmed Problem 12285145 Diarrhea, unspecified type (R19.7) Active confirmed Vital Signs Blood pressure diastolic 00 mm Hg 05/22/2024 Height 69 in 05/22/2024 Blood pressure systolic 00 mm Hg 05/22/2024 Weight 249 lbs 05/22/2024 BMI 36.77 kg/m2 05/22/2024 Encounters Encounter Location Date Provider Diagnosis [facility] [address] [place], [place] [id number] 08/18/2024 Benson Lloyd Colon cancer screeni ng Z12.11 ; Personal history of colonic polyps Z86.0100 ; Diverticulosis of large intestine without perforation or abscess without bleeding K57.30 and Other hemorrhoids K64.8 [facility] [address] [place] [address] 05/22/2024 Benson Lloyd Encounter for screen ing [...] Insured Coverage Start Date Coverage End Date [facility] [address] [place] [address] [id number] DAT RODRÍGUEZ Self - patient is the insured Medical (General) History Medical History History ICD Code Psoriasis Denies GA,DM,CVA,Lung disease,renal dise ase Surgical History Surgery Date(Month/Year) 1993 Fibroid removal 1993 Tonsillectomy and adenoidectomy 1976 Pilonidal cyst excision 1984 Facial plastic surgery for dog bite 1969 Anal skin tag removed in 2004
--- OUTSIDE RECORDS SUMMARY | 2025-04-27 12:30 | XMS_ITS | Data Portability ---
Author Organization [facility], Telehealth Patient Home Address [address] [place] [address] Assessment No assessment recorded. Plan of Treatment Reminders Order Date Submit Date Provider Last Modified By Organization Details Last Modified Time Details Appointments None recorded. Lab urinalysis , dipstick 2019 [facility], [address], [place], [address], 0 09:23:48 culture, urine + sensitivit y 2019 [facility], [address] [place] [address], [address], 0 02:33:07 CBC w/ auto diff 2019 [facility], [address] [place] [address], [address], 0 01:02:55 CMP, serum or plasma 2019 020 [facility], [address] [place] [address], [address], 0 01:02:55 lipid panel, blood 2019 [facility], [address] [place] [address], [address], 0 01:02:55 SARS coronaviru s IgG Ab, QL, IA, serum 2019 020 [facility], [address], [place], [address], 0 01:02:55 Referral urologist referral 2019 [email or web address] [facility], [address], [place], [address], 0 09:38:56 colonoscop y referral 2017 [facility], [address] [place], [address], 8 13:35:37 Procedures None recorded. Surgeries None recorded. Imaging US, neck 2019 [email or web address] 10 [facility], [address] [facility], [place], [address], 0 08:17:43 Medication Orders Bactrim DS 800 mg-160 mg tablet 2019 [email or web address] [facility][id number], [address] [place], [place], [id number], 0 14:03:04 EpiPen 2-Zachary 0.3 mg/0.3 mL injection, auto-injec tor 2019 INTERFACE [facility] #[id number], [address] [place], [place], [id number], 0 09:23:57 Contrave 8 mg-90 mg tablet,ext ended release 2017 018 [email or web address] [facility] #[id number], [address] [place], [place], [id number], 8 15:33:27 Patient TargetsNo targets recorded. Patient Instructions Encounter Date Encounter Id Patient Instructions Last Modified By Organization Details Last Modified Time 02/19/2018 [id number] Healthy diet & exercise to reduce risk [...] it. [email or web address] Not available 02/19/2018 17:44:03 08/27/2018 [id number] Call if persists beyond 14 days or [...] Abnormal Flag Note LastModifiedBy Organization Detail LastModifiedTime 03/31/20 20 03/31/2020 urina lysis , dipst ick Leukocytes Trace Not Available [facility] [address], [place], [address], 03/31/2020 09:02:53 03/31/2003/31/2020 urina lysis , dipst ick Nitrite negati ve Not Available [facility] [address], [place], [address], 03/31/2020 09:02:53 03/31/2003/31/2020 urina lysis , dipst ick Urobilinogen .2 Not Available [facility] [address], [place], [address], 03/31/2020 09:02:53 03/31/20 20 03/31/2020 urina lysis , dipst ick Protein Negati ve Not Available [facility] [address], [place], [address], 03/31/2020 09:02:53 03/31/20 20 03/31/2020 urina lysis , dipst ick pH 6.0 Not Available [facility] [address], [place], [address], 03/31/2020 09:02:53 03/31/2003/31/2020 urina lysis , dipst ick Blood Non-He molyze d: Trace Not Available [facility] [address] [facility] [address], [place], [address], 03/31/2020 09:02:53 03/31/20 20 03/31/2020 urina lysis , dipst ick Specific [place] 1.020 Not Available [facility] [address], [place], [address], 03/31/2020 09:02:53 03/31/2003/31/2020 urina lysis , dipst ick Ketone Negati ve Not Available [facility] [address], [place], [address], 03/31/2020 09:02:53 03/31/2003/31/2020 urina lysis , dipst ick Bilirubin Negati ve Not Available [facility] [address], [place], [address], 03/31/2020 09:02:53 03/31/2003/31/2020 urina lysis , dipst ick Glucose Negati ve Not Available [facility] [address], [place], [address], 03/31/2020 09:02:53 03/31/20 20 03/31/2020 urina lysis , dipst ick Appearance Clear Not Available [facility] [address], [place], [address], 03/31/2020 09:02:53 03/31/20 20 03/31/2020 urina lysis , dipst ick Color Yellow Not Available [facility] [address], [place], [address], 03/31/2020 09:02:53 07/18/20 18 07/17/2018 MAMMO , scree ender, bilat eral No observ ation record ed. blossom Not Available 2017 15:23:54 07/28/20 19 07/28/2019 MAMMO , scree ender, bilat eral No observ ation record ed. [email or web address] [facility] (Outpt Imaging) [address] [place], [address], 07/28/2019 13:33:54 07/30/20 19 07/30/2019 US, breas t, unila teral No observ ation record ed. [email or web address] (Outpt Imaging) [address] [facility], [place], [address], 07/30/2019 12:31:48 07/30/20 19 07/30/2019 MAMMO , diagn ostic , tomos ynthe sis, unila teral No observ ation record ed. [email or web address] (Outpt Imaging) [address] [place], [address], 07/30/2019 12:31:48 08/02/20 20 08/02/2020 MAMMO , diagn ostic , digit al, bilat eral No observ ation record ed. [email or web address] [facility] [address] [facility], [place], [address], 08/02/2020 15:48:41 08/17/20 21 08/17/2021 MAMMO , scree ender, digit al, billan eral No observ ation record ed. [facility]) [address], [place], [address], 08/17/2021 16:32:24 Result Notes None recorded. Problems Name Problem SNOMED Code Status Onset Date Resolution Date Notes Provider Name and Address Organization Details Recorded Time History of psoriasis 840480071 Active 018 Not Available [facility] 0 11:27:29 Problem Notes None recorded. Procedures Surgical History Date Name Laterality Status Provider Name and Address Organization Details Recorded Time 018 Colonoscopy completed Trisha Marmolejo [facility] 08/09/2018 13:52:10 017 Most Recent Mammogram completed Delim Nicholson NP, [address] [place] [address], [address], [facility] 02/19/2018 15:25:47 016 Date of Last Pap Smear completed Delmi Nicholson NP, [address] [place] [address], [address], [facility] 02/19/2018 15:25:10 Caesarean Section completed Delmi Nicholson NP, [address] [place] [address], [address], [facility] 12/30/2018 06:51:54 tonsillectomy completed Delmi woods NP, [address] [place] [address], [address], [facility] 12/30/2018 06:52:08 Myomectomy completed Delmi Nicholson NP, [address] [place] [address], [address], [facility] 12/30/2018 06:52:26 removal of pilonidal cyst completed Delmi Nicholson NP, [address] [place] [address], [address], [facility] 12/30/2018 06:52:41 Imaging Results None recorded. Procedure Notes None recorded. Medical Equipment None [...] Not Available No t Available amoxicillin 875 mg-potassiu m clavulanate 125 mg tablet 03/31 completed [...] Not Available Not Available Not Available Afluria 6913-5972 (PF) 45 mcg(15 mcg x 3)/0.5 mL intramuscul ar syringe 02/19 completed Not Available Not Available Not Available Fluarix Quad (PF) 60 mcg (15 mcg x 4)/0.5 mL IM syringe 08/27 completed Not Available Not Available Not Available Fluzone Quad (PF) 60 mcg (15 mcg x 4)/0.5 mL IM syringe 06/02 completed Not Available Not Available Not Available Vitals Date Recorded Body weight Body mass index (BMI) Body height Heart rate Oxygen saturation Oxygen saturation in Arterial blood by Pulse oximetry Systolic And Diastolic Provider Name and Address Organization Details Last Updated DateTime 8 521469 g 48.5 kg/m2 171.45 cm 86 /min 97 % 97 % 110/80 mm[Hg] [facility] 8 15:15:23 Date Recorded Body height Body mass index (BMI) Body weight Heart rate Oxygen saturation Oxygen saturation in Arterial blood by Pulse oximetry Systolic And Diastolic Provider Name and Address Organization Details Last Updated DateTime 0 171.45 cm 48 kg/m2 693605. 51 g 75 /min 99 % 99 % 126/70 mm[Hg] Alley Garcia [facility] 0 09:02:36 Date Recorded Body height Body mass index (BMI) Body weight Heart rate Oxygen saturation Oxygen saturation in Arterial blood by Pulse oximetry Systolic And Diastolic Provider Name and Address Organization Details Last Updated DateTime 0 171.45 cm 48.3 kg/m2 589467. 41 g 83 /min 96 % 96 % 124/76 mm[Hg] SOURAV JONES [address] [place], [address] 0 14:04:33 Date Recorded Body height Body mass index (BMI) Body weight Heart rate Oxygen saturation Oxygen saturation in Arterial blood by Pulse oximetry Body temperature Systolic And Diastolic Provider Name and Address Organization Details Last Updated DateTime 8 171.45 cm 43.2 kg/m2 269017. 86 g 84 /min 99 % 99 % 97.7 [degF] 118/76 mm[Hg] [facility] 8 15:33:16 Social History Question Answer Notes LastModified by Organizat ion Details LastModified Time Tobacco Smoking Status Never Smoker Not Available [facility] 08/10/2020 03:36:23 What Was The Date Of Your Most Recent Tobacco Screening? 08/27/2018 [id number] Information not available 08/10/2020 Sex: Unknown Functional Status None recorded. Mental Status None recorded. Family History Relationship Description Onset Age of this Age Resolved Age Notes LastModified by Organization Details LastModified Time Mother Atrial fibrillation blossom Not available 15:19:09 Father Harmful pattern of use of alcohol 55 [email or web address] Not available 2017 15:23:55 Medical History Condition Response Coronary Artery Disease N Gout N Kidney Stones N Blood Diseases N Hyperthyroidism N Blood Transfusion N Breast Cancer N Hypothyroidism N Depression N COPD N Lung Disease N Defects or Inherited Disease N Anesthesia Complications N Anxiety Disorder N Meniere's disease N Muscle, Joint, or Bone Problems N Obesity Y Vision or Eye Problems Y Arthritis N Infertility N Polyps N Mental Disorder N Cancer N Varicosities N Stroke N Endometriosis N Bladder or Kidney Problems N High Cholesterol N Liver Disease N Fibromyalgia N Kidney Disease N Allergies/Hayfever Y Heart Problems N Hospitalizations Y Thyroid Problems N GI Problems N Eating Disorder Y Skin Problems Y Anemia N MRSA exposure N Constipation N Mental Illness N Diabetes N Ovarian Cancer N Seizures/Epilepsy N Tuberculosis N Congestive Heart Failure (CHF) N Eczema Y Abuse/Domestic Violence N Diverticulitis N Asthma N Reflux/GERD N Hepatitis N Heart Disease N Chronic Ear Infections N Chicken Pox Y Autism Spectrum Disorder (ASD) N Osteoporosis N Thrombophilias N Gynecological History Statement/Question Response [...] Time Hep A, adult 9 [facility] 12/27/2018 10:49:48 Tdap 3 completed Delmi Nicholson NP, S [address] [place] [address], [address], [facility] 12/30/2018 06:51:29 Influenza, split virus, quadrivalent, preservative 0 completed Raheem Marvin DO [address] [place] [address], [address], [facility] 07/11/2020 11:32:46 Past Encounters Encounter ID Performer Location Encounter Start Date Encounter Closed Date Diagnosis/Indication Diagnosis SNOMED-CT Code Diagnosis ICD10 Code Diagnosis Note [id number] Raheem Marvin DO [facility] [address] [place] [address],[place] [address] 02/19/2018 15:10:02 02/20/2018 08:52:58 Adult health examination 626254267 Z00.01 check labs including lipid profile up to date mammogram Obesity 761910268 E66.9 see discussion notes advise against Atkins ketogenic diet, re: lack fruits and eventual failure Occult blo od detected in feces 02267031 R19.5 Psoriasis 6649636 L40.9 follow with rheumatolo gy Allergic rhinitis 193197 04 J30.2 currently mild [id number] Raheem Marvin [facility] [address] [facility],[place] [address] 08/27/2018 15:28:37 08/27/2018 16:43:39 Diarrhea 86207975 R19.7 prn imodium Psoriasis 1204641 L40.9 on [place] [id number] Raheem Marvin [facility] [address] [facility],[place] [address] 03/31/2020 08:55:19 03/31/2020 12:03:21 Renewal of prescription 259646976 Z76.0 Adult [facility] th examination 970075869 Z00.00 no concerns today, does have a UTI, will treat and send out urine [id number] Raheem Marvin [facility] [address] [facility] [address] 06/02/2020 13:56:49 06/02/2020 14:22:26 Urinary incontinence 020930776 R32 will have her see urology Mass of neck 079614346 R 22.1 will r/u concerning findings Health Concerns Section Related Observation LastModified by Organization Detai ls LastModified Time None Recorded Concern Status LastModified by Organization Details LastModified Time None Recorded Advance Directives Directive None Recorded Payers Insurance Date Sequence Insurance Name Policy Number Policy Ware Covered Member ID Ware Member ID Guarantor Name 06/02/[address] [place] [address] [id number] Felipa Avendano [id number] Felipa Avendano Notes Date Note Type Note [...] weight loss Delmi Nicholson NP, S [address] [place], [address], [facility] 02/19/2018 17:52:39 8 text/html 1 week ago awoke and felt fine, but had watery diarrhea all day That evening, at movies- ate popcorn and vomited No further vomiting Since then alternating liquid and soft stools No fever Few weeks ago went to [place]- no international travel 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 psoriasis better No recent antibiotics Colonoscopy 3 weeks ago, 1 polyp Has not been to intermediate or spent time in hospital Denies unexplained weight loss, BRBPR or hematuria, dysuria Delmi Nicholson NP, S [address] [facility], [place], [address], [facility] 08/27/2018 16:39:37 0 text/html Annual [...] hearing Vision:no vision problems SOURAV JONES [address] [place], [address], [facility] 03/31/2020 09:27:31 0 text/html mass on the neck the patient reports that SOURAV JONES [address] [place], [address], [facility] 06/02/2020 14:16:08 OBGyn Episode No OBEpisode recorded.
--- OUTSIDE RECORDS SUMMARY | 2025-04-27 12:30 | XMS_ITS | Clinical Summary ---
Author Organization [address] [place] [address] Address [address] [place] [address] Phone Care Team Providers Care Bag Loader Machine Operator Name Role Phone Pedro Luis Field MD Primary Care Provider [phone] Allergies Active Allergy Reactions Criticality Noted Date Comments Bee Venom Protein (Honey Bee) 2005 Medications EPINEPHrine (EpiPen 2-Zachary) 0.3 mg/0.3 mL injection Inject 0.3 mL (0.3 mg total) into the thigh if needed. 01/10/2008 Active cholecalciferol (VITAMIN D-3) 25 mcg (1,000 unit) capsule Take 1 capsule (1,000 Units total) by mouth 1 (one) time each day. 03/26/2025 Active fluocinolone acetonide oiL 0.01 % drops APPLY TO EARS TWICE DAILY NEEDED 05/28/2024 Active griseofulvin (GRIFULVIN V) 500 mg tablet Take 1 tablet (500 mg total) by mouth 2 (two) times a day. 03/26/2012 Active tirzepatide, weight loss, (Zepbound) 2.5 mg/0.5 mL injectionIndicat ions:Class 2 obesity due to excess calories without serious comorbidity with body mass index (BMI) of 39.0 to 39.9 in adult Inject 0.5 mL (2.5 mg total) under the skin every 7 (seven) days. 2 mL 04/03/2025 Active Active Problems Problem Noted Date Diagnosed Date Genital herpes 11/20/2024 Overview (11/20/2024): on Valtrex daily suppressive therapy IMO update Papanicolaou smear of cervix with atypical squamous cells of undetermined significance (ASC-US) 03/10/2019 Overview (11/20/2024): History: PAP 02/19/2018: ASCUS; High Risk HPV DNA negative PAP 03/05/2019: Uterine fibroid 01/21/2014 Bilateral ovarian cysts 06/16/2013 Eczema 03/01/2012 Overview (04/03/2025): Eczematoid Dermatitis Obese 05/23/2011 Encounters Date Type Department Care Team Description 04/03/2025 3:30 PM EDT Office Visit Bariatric Surgery - [address] [place] [address] Jeni Carrasquillo PA Class 2 obesity due to excess calories without serious comorbidity with body mass index (BMI) of 39.0 to 39.9 in adult (Primary Dx) from Last 3 Months Surgical History Surgery Date Site/Laterality Comments MYOMECTOMY PROCEDURE: AR LAPS MYOMECTOMY EXC 1-4 MYOMAS 250 GM/< TONSILLECTOMY PROCEDURE: AR TONSILLECTOMY PRIMARY/SECONDARY <AGE 12 SECTION PROCEDURE: AR DELIVERY ONLY Medical History Medical History Date [...] Sign Reading Time Taken Comments Blood Pressure 119/75 04/03/2025 3:08 PM EDT Pulse 76 04/03/2025 3:08 PM EDT Temperature 36.4 C (97.5 F) 04/03/2025 3:08 PM EDT Respiratory Rate - - Oxygen Saturation - - Inhaled Oxygen Concentration - - Weight 118 kg (261 lb) 04/03/2025 3:08 PM EDT Height 172.7 cm (5' 8 ) 04/03/2025 3:08 PM EDT Body Mass Index 39.68 04/03/2025 3:08 PM EDT Plan of Treatment Upcoming Encounters Date Type Department Care Team ([facility] st Contact Info) Description 08/05/2025 8:15 AM EDT Office Visit Bariatric Surgery - [place] [address] [facility] [address] [place] [address] Jeni Carrasquillo PA [address] [facility] [address] [place] [address] Health Maintenance Due Date Last Done Comments Breast Cancer Screening 1966 Hepatitis B Vaccines (1 of 3 - 19+ 3-dose series) 1985 Pneumococcal Vaccine: 50+ Years (1 of 1 - PCV) 2016 Cholesterol Screening (Lipid Panel) 09/06/2022 HIV Screening 09/06/2022 Hepatitis C Screening 09/06/2022 Social Influencers of Health Screening 09/06/2022 DTaP,Tdap,and Td Vaccines (3 - Td or Tdap) 10/14/2023 10/14/2013, 10/08/2012 COVID-19 Vaccine ( season) 2024 06/30/2023, 07/08/2022, 01/12/2022, Additional history exists Depression Screening 10/08/2024 Influenza Vaccine (#1) 2025 , 06/21/2023, 07/08/2022, Additional history exists Cervical Cancer Screening: HPV 09/11/2028 09/11/2023 Colorectal Cancer Screening: Colonoscopy 08/18/2034 08/18/2024 Hepatitis A Vaccines Aged Out 08/28/2019, 12/27/19 19 No longer eligible based on patient's age to complete this topic Zoster Vaccines Completed 09/18/2020, 07/11/2020 HIB Vaccines Aged Out No longer eligi [...] to complete this topic RSV Immunization Patients Under 20 months Aged Out No longer eligible based on [...] Cancer Screening: HPV negative, abstracted Historical Provider MD HEALTH MAINTENANCE Final Result from Last 3 Months or Most Recently Relevant to Health Maintenance Insurance [facility] PRAV[facility] PEREZ [id number] [facility] [address] [place] [address] Care Teams Bag Loader Machine Operator Relationship Specialty Start Date End Date Pedro Luis Field MD [address] [facility] [address] [place] [address] [place] PCP - General Internal Medicine 05/22/22
[2025-04-27 12:37] LABS: INTERNATIONAL NORM RATIO 0.9 (0.9-1.1); Prothrombin Time 10.2 SEC (10.9-12.4)
[2025-04-27 12:44] LABS: Appearance Urine Turbid; Glucose Urine UA Negative (Negative); PH 5.0 (5.0-9.0); Specific Gravity - Urine >= 1.030 (1.005-1.025); UMIC TRIGGER UACC YES
== END 2025-04-27 11:23 | disposition home or self-care (01) ==
LOC: HO.10HDL 11:22
DX: Z01.818 Encounter for other preprocedural examination (principal); R31.9 Hematuria, unspecified
CPT/HCPCS: 36415; 81001; 85610; 88112

== ENCOUNTER 2025-09-23 07:18 | Outpatient (REF) | payer OTHER, SELFPAY ==
--- OUTSIDE RECORDS SUMMARY | 2024-08-18 09:30 | XMS_ITS ---
Author Organization [facility] Address [address] [place] [address] Care Team Providers Care Operation Shift Supervisor Name Role Phone Emir CARMICHAEL, [place] Primary Care Provider Unava Benson Mcneil Unavailable [phone] REASON FOR VISIT screening,hx polyps Problems Problem Type SNOMED Code ICD Code Onset Dates Problem Status W/U Status Risk Notes Problem Diverticular disease of colon (711394854) Diverticulosis of large intestine without perforation or abscess without bleeding (K57.30) Active confirmed Encounters Encounter Location Date Provider Diagnosis [facility] [place] [address] [place] [address] [phone] 08/18/2024 Benson Lloyd Colon cancer scree ender Z12.11 ; Personal history of colonic polyps Z86.0100 ; Diverticulosis of large intestine without perforation or abscess without bleeding K57.30 and Other hemorrhoids K64.8 Assessments Encounter Date Diagnosis (ICD Code) Assessment Notes Treatment Notes Treatment Clinical Notes Section Notes 08/18/2024 Colon cancer screening (ICD-10 - Z12.11) 08/18/2024 Personal history of colonic polyps (ICD-10 - Z86.0100) 08/18/2024 Diverticulosis of large intestine without perforation or abscess without bleeding (ICD-10 - K57.30) 08/18/2024 Other hemorrhoids (ICD-10 - K64.8) Plan Of Treatment No Information Progress Notes * RATNA RODRÍGUEZ: 7 (59 yo F)Acc No.[id number]:08/18/2024 COLON WITH MAC Patient: DAT AUGUSTE Provider: Rina Lloyd MD :1965 A ge:58 Y S ex:Female Date:08/18/2024 [address]:[address] [place] [address] [id number] Pcp:Pedro Luis Field MD Subjective: * Chief Complaints: * S creening,hx polyps Assessment: * Assessment: 1. C olon cancer screening - Z12.11 (Primary) 2 . P ersonal history of colonic polyps - Z86.0100 3 . D iverticulosis of large intestine without perforation or abscess without bleeding - K57.30 4 . O ther hemorrhoids - K64.8 ? Plan: * Procedure Codes: 4 5378 DIAGNOSTIC COLONOSCOPY, Modifiers: 53 Billing Information: * Procedure Codes: 62254 DIAGNOSTIC COLONOSCOPY. Modifiers: 53 * The named appointment provid er may or may not be the originator of this progress note, and it is not deemed complete until electronically signed by the appointment provider. Sign off status: Pending * Provider: Rina Lloyd MD Date: 10/18/2023 Generated for Ras mcmullen/Linda/Adolfosmitting on: 11/24/2024 07:21 AM EST
--- OUTSIDE RECORDS SUMMARY | 2025-09-23 07:22 | XMS_ITS | Patient Health Record ---
Author Organization [facility] Address [address] [place] [address] Care Team Providers Care Superintendent [employer] Name Role Phone Emir CARMICHAEL [place] Primary Care Provider Benson Wall Unavailable [phone] Allergies Allergen (clinical drug ingredient) Drug/Non Drug Allergy documented on EMR Reaction Allergy Type Onset Date Status BEES (uncoded) Unknown Allergy Activ e Reason For Referral No Information Medications Medication SIG (Take, Route, Frequency, Duration) Notes Start Date End Date Status Semaglutide (1 MG/DOSE) 4 MG/3ML Solution Pen-injector as directed Subcutaneous Act dana Social History Tobacco Use: Social History Observation Description Date Details (start date - stop date) Never Smoker NA - NA Social History Drugs/Alcohol: Social Info Question Answer Notes Alcohol Screen Did you have a drink containing alcohol in the past year? 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 Section Notes: Nonsmoker; no alcohol Nonsmoker; no alcohol Problems Problem Type SNOMED Code ICD Code Onset Dates Problem Status W/U Status Risk Notes Problem Screening for malignant neoplasm of colon (012821111) Encounter for screening for malignant neoplasm of colon (Z12.11) Active confirmed Problem History of polyp of colon (situation) (835608360) Personal history of colonic polyps (Z86.010) Active confirmed Problem Diverticular disease of colon (396543481) Diverticulosis of large intestine without perforation or abscess without bleeding (K57.30) Active confirmed Problem Preprocedural examination (216696117656602) Preprocedural examination (Z01.818) Active confirmed Problem Diarrhea (68027571) Diarrhea, unspecified type (R19.7) Active confirmed Plan Of Treatment Pending Test Test Name [...] Insured Coverage Start Date Coverage End Date [facility] [address] [facility] [place] [address] [phone] [id number] DAT RODRÍGUEZ Self - patient is the insured Medical (General) History Medical History History ICD Code Psoriasis Denies AK,DM,CVA,Lung disease,renal dise ase Surgical History Surgery Date(Month/Year) 1993 Fibroid removal 1993 Tonsillectomy and adenoidectomy 1976 Pilonidal cyst excision 1984 Facial plastic surgery for dog bite 1969 Anal skin tag removed in 2004
--- OUTSIDE RECORDS SUMMARY | 2025-09-23 07:22 | XMS_ITS | Data Portability ---
Author Organization [facility] Internal Medicine, Telehealth Patient Home Address [address] [place] [address] Assessment No assessment recorded. Plan of Treatment Reminders Order Date Submit Date Provider Last Modified By Organization Details Last Modified Time Details Appointments None recorded. Lab urinalysis , dipstick 2019 [facility], [address] [facility] [address], [place], [address], 0 09:23:48 culture, urine + sensitivit y 2019 [facility], [address] [place] [address], [address], 0 02:33:07 CBC w/ auto diff 2019 [facility], [address] [place] [address], [address], 0 01:02:55 CMP, serum or plasma 2019 020 [facility], [address] [place] [address], [address], 0 01:02:55 lipid panel, blood 2019 [facility], [address] [place] [address], [address], 0 01:02:55 SARS coronaviru s IgG Ab, QL, IA, serum 2019 020 [facility], [address] [place] [address], [place], [address], 0 01:02:55 Referral urologist referral 2019 [email or web address] [facility], [address] [facility], [place], [address], 0 09:38:56 colonoscop y referral 2017 018 blossom Not available 8 13:35:37 Procedures None recorded. Surgeries None recorded. Imaging US, neck 2019 [email or web address] 10 [facility], [address] [place] [address], [place], [address], 0 08:17:43 Medication Orders Bactrim DS 800 mg-160 mg tablet 2019 [email or web address] [facility] #[id number], [address] [place], [id number], 0 14:03:04 EpiPen 2-Zachary 0.3 mg/0.3 mL injection, auto-injec tor 2019 020 INTERFACE [facility] #[id number], [address] [place], [id number], 0 09:23:57 Contrave 8 mg-90 mg tablet,ext ended release 2017 018 [email or web address] [facility] #[id number], [address] [place], [place], [id number], 8 15:33:27 Patient TargetsNo targets recorded. Patient Instructions Encounter Date Encounter Id Patient Instructions Last Modified By Organization Details Last Modified Time 02/19/2018 [id number] Healthy diet & exercise to reduce risk [...] it. blossom Not available 02/19/2018 17:44:03 08/27/2018 [id number] Call if persists beyond 14 days or [...] , dipst ick Leukocytes Trace Not Available [facility] [address] [facility] [address], [place], [address], 03/31/2020 09:02:53 03/31/2003/31/2020 urina lysis , dipst ick Nitrite negati ve Not Available [facility] [address] [facility] [address], [place], [address], 03/31/2020 09:02:53 03/31/2003/31/2020 urina lysis , dipst ick Urobilinogen .2 Not Available [facility] [address], [place], [address], 03/31/2020 09:02:53 03/31/2003/31/2020 urina lysis , dipst ick Protein Negati ve Not Available [facility] [address], [place], [address], 03/31/2020 09:02:53 03/31/20 20 03/31/2020 urina lysis , dipst ick pH 6.0 Not Available [facility] [address], [place], [address], 03/31/2020 09:02:53 03/31/20 20 03/31/2020 urina lysis , dipst ick Blood Non-He molyze d: Trace Not Available [facility] [address], [place], [address], 03/31/2020 09:02:53 03/31/20 20 03/31/2020 urina lysis , dipst ick Specific [place] 1.020 Not Available [facility] [address], [place], [address], 03/31/2020 09:02:53 03/31/20 20 03/31/2020 urina lysis , dipst ick Ketone Negati ve Not Available [facility] [address], [place], [address], 03/31/2020 09:02:53 03/31/2003/31/2020 urina lysis , dipst ick Bilirubin Negati ve Not Available [facility] [address], [place], [address], 03/31/2020 09:02:53 03/31/20 20 03/31/2020 urina lysis , dipst ick Glucose Negati ve Not Available [facility] [address], [place], [address], 03/31/2020 09:02:53 03/31/20 20 03/31/2020 urina lysis , dipst ick Appearance Clear Not Available [facility] [address], [place], [address], 03/31/2020 09:02:53 03/31/20 20 03/31/2020 urdhara lysis , dipst ick Color Yellow Not Available [facility] [address] [facility] [address], [place], [address], 03/31/2020 09:02:53 07/18/20 18 07/17/2018 MAMMO , scree ender, bilat eral No observ ation record ed. blossom Not Available 2017 15:23:54 07/28/20 19 07/28/2019 MAMMO , scree ender, bilat eral No observ ation record ed. [email or web address] [facility] (Outpt Imaging) [address] [place], [address], 07/28/2019 13:33:54 07/30/20 19 07/30/2019 US, harmony t, unila teral No observ ation record ed. [email or web address] (Outpt Imaging) [address] [place], [address], 07/30/2019 12:31:48 07/30/20 19 07/30/2019 MAMMO , diagn ostic , tomos ynthe sis, unila teral No observ ation record ed. [email or web address] (Outpt Imaging) [address] [place], [address], 07/30/2019 12:31:48 08/02/20 20 08/02/2020 MAMMO , diagn ostic , digit al, bilat eral No observ ation record ed. [facility] [address] [facility], [place], [address], 08/02/2020 15:48:41 08/17/20 21 08/17/2021 MAMMO , scree ender, digit al, bilat eral No observ ation record ed. [facility] [address], [place], [address], 08/17/2021 16:32:24 Result Notes None recorded. Problems Name Problem SNOMED Code Status Onset Date Resolution Date Notes Provider Name and Address Organization Details Recorded Time History of psoriasis 201239703 Active 018 Not Available [facility] 0 11:27:29 Problem Notes None recorded. Procedures Surgical History Date Name Laterality Status Provider Name and Address Organization Details Recorded Time 018 Colonoscopy completed Trisha Marmolejo [facility] 08/09/2018 13:52:10 017 Most Recent Mammogram completed Delmi Nicholson NP, S [address] [place] [address], [address], [facility] 02/19/2018 15:25:47 016 Date of Last Pap Smear completed Delmi Nicholson NP, S [address] [place] [address], [address], [facility] 02/19/2018 15:25:10 Caesarean Section completed Delmi Nicholson NP, S [address] [place] [address], [address], [facility] 12/30/2018 06:51:54 tonsillectomy completed Delmi woods NP, S [address] [place] [address], [address], [facility] 12/30/2018 06:52:08 Myomectomy completed Delmi Nicholson NP, S [address] [place] [address], [address], [facility] 12/30/2018 06:52:26 removal of pilonidal cyst completed Delmi Nicholson NP, S [address] [place] [address], [address], [facility] 12/30/2018 06:52:41 Imaging Results None recorded. Procedure [...] Not Available Not Available Not Available Afluria 6539-0339 (PF) 45 mcg(15 mcg x 3)/0.5 mL [...] (BMI) Body height Heart rate Oxygen saturation Systolic And Diastolic Provider Name and Address Organization Details Last Updated DateTime 8 763576 g 48.5 kg/m2 171.45 cm 86 /min 97 % 110/80 mm[Hg] Trisha Sy [facility] 8 15:15:23 Date Recorded Body height Body mass index (BMI) Body weight Heart rate Oxygen saturation Systolic And Diastolic Provider Name and Address Organization Details Last Updated DateTime 0 171.45 cm 48 kg/m2 002009. 51 g 75 /min 99 % 126/70 mm[Hg] Alleyjeremy Garcia [facility] 0 09:02:36 Date Recorded Body height Body mass index (BMI) Body weight Heart rate Oxygen saturation Systolic And Diastolic Provider Name and Address Organization Details Last Updated DateTime 0 171.45 cm 48.3 kg/m2 138280. 41 g 83 /min 96 % 124/76 mm[Hg] SOURAV JONES [address] [place], [address], [facility] 0 14:04:33 Date Recorded Body height Body mass index (BMI) Body weight Heart rate Oxygen saturation Body temperature Systolic And Diastolic Provider Name and Address Organization Details Last Updated DateTime 8 171.45 cm 43.2 kg/m2 138921. 86 g 84 /min 99 % 97.7 [degF] 118/76 mm[Hg] Trisha Francie [facility] 8 15:33:16 Social History Question Answer Notes LastModified by Organizat ion Details LastModified Time Tobacco Smoking Status Never Smoker Not Available [facility] 08/10/2020 03:36:23 What Was The Date Of Your Most Recent Tobacco Screening? 08/27/2018 [id number] Information not available 08/10/2020 Sex: Unknown Functional Status None recorded. Mental Status None recorded. Family History Relationship Description Onset Age of this Age Resolved Age Notes LastModified by Organization Details LastModified Time Mother Atrial fibrillation [email or web address] Not available 15:19:09 Father Harmful pattern of use of alcohol 55 [email or web address] Not available 2017 15:23:55 Medical History Condition Response Coronary Artery Disease N Gout N Kidney Stones N Blood Diseases N Hyperthyroidism N Breast Cancer N Blood Transfusion N Depression N COPD N Lung Disease N Hypothyroidism N Defects or Inherited Disease N Anesthesia [...] Time Hep A, adult 9 [facility] 12/27/2018 10:49:48 Tdap 3 completed Delmi Nicholson NP, S [address] [place] [address], [address], [facility] 12/30/2018 06:51:29 Influenza, split virus, quadrivalent, preservative 0 completed Raheem Marvin DO [address] [place] [address], [address], [facility] 07/11/2020 11:32:46 Past Encounters Encounter ID Performer Location Encounter Start Date Encounter Closed Date Diagnosis/Indication Diagnosis SNOMED-CT Code Diagnosis ICD10 Code Diagnosis IMO Codes Diagnosis Note [id number] Raheem Marvin DO [facility] [address] [place] [address],[place] [address] 02/19/2018 15:10:02 02/20/2018 08:52:58 Adult health examination 929669820 Z00.01 check labs including lipid profile up to date mammogram Obesity 371995930 E66.9 see discussion notes advise against Atkins ketogenic diet, re: lack fruits and eventual failure Occult blo od detected in feces 95621601 R19.5 Psoriasis 3726740 L40.9 follow with rheumatolo gy Allergic rhinitis 388964 04 J30.2 currently mild [id number] Raheem Marvin [facility] [address] [facility] [place] [address] [facility] [place] [address] 08/27/2018 15:28:37 08/27/2018 16:43:39 Diarrhea 31544594 R19.7 prn imodium Psoriasis 6425388 L40.9 on [facility] [id number] Raheem Marvin [facility] Medicine [address] [facility] [address] [place] [address] 03/31/2020 08:55:19 03/31/2020 12:03:21 Renewal of prescription 012679389 Z76.0 Adult heal th examination 596231279 Z00.00 no concerns today, does have a UTI, will treat and send out urine [id number] Raheem Marvin [facility] [address] [facility], ite [facility] [place] [address] 06/02/2020 13:56:49 06/02/2020 14:22:26 Urinary incontinence 722527421 R32 will have her see urology Mass of neck 154887409 R 22.1 will r/u concerning findings Health Concerns Section Related Observation LastModified by Organization Detai ls LastModified Time None Recorded Concern Status LastModified by Organization Details LastModified Time None Recorded Advance Directives Directive None Recorded Payers Insurance Date Sequence Insurance Name Policy Number Policy Ware Covered Member ID Ware Member ID Guarantor Name 06/02/[address] [place] [address] [id number] Felipa Avendano [id number] Felipa Avendano Notes Date Note Type Note Provider Name and Address Organization Details Recorded Time 02/20/20 18 text/htm l Annual WellnessReported by PatientSocial/Behavioral HistoryFor physical activity, patient reportsdoes not exercise on a regular basisanddeconditioned due to sedentary lifestyle. For diet and nutrition, patient reportsdiscussed portion controlanddiscussed diet improvement. For fracture risk, patient reportsno history of fractures,no recent explained fracture,no sudden unexplained fractures, andno previous musculoskeletal injuries. For additional lifestyle factors, patient reportsno tobacco use.Mental Status:For depression risk, patient reportsnever feels sad, empty, or tearful,no feelings of worthlessness or guilt,no thoughts of suicide,no history of depression, andno history of mood disorders.Functional AbilityFor hearing, patient reportsno loss of hearing. For vision, patient reportsno vision problems(wears glasses). 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 psoriasis better No recent antibiotics Colonoscopy 3 weeks ago, 1 polyp Has not been to shelter or spent time in hospital Denies unexplained weight loss, BRBPR or hematuria, dysuria Delmi Nicholson NP, S [address] [facility], [place], [address], [facility] Medicine 08/27/2018 16:39:37 03/31/20 20 text/htm l Annual WellnessReported by PatientSocial/Behavioral HistoryFor diet and nutrition, patient reportsdiscussed vitamin and supplement use,discussed portion control,discussed maintaining calcium balance, anddiscussed diet improvement. For fracture risk, patient reportsno history of fractures,no recent explained fracture,no sudden unexplained fractures, andno previous musculoskeletal injuries. For physical activity, patient reportsdiscussed weightbearing activitiesanddiscussed exercise habits. For additional lifestyle factors, patient reportsno tobacco useandno alcohol intake.Mental Status:For depression risk, patient reportshistory of mood disordersandhistory of depression(was having side effects of depression with medication, stopped it feeling better).Functional AbilityFor hearing, patient reportsno loss of hearing. For vision, patient reportsno vision problems. SOURAV JONES [address] [place], [address], [facility] Medicine 03/31/2020 09:27:31 06/02/20 20 text/htm l ROS as noted in the HPI mass on the neck the patient reports that SOURAV JONES [address] [place], [address], [facility] Medicine 06/02/2020 14:16:08 OBGyn Episode No OBEpisode recorded.
[2025-09-23 10:31] LABS: Appearance Urine Clear; Glucose Urine UA Negative (Negative); PH 6.0 (5.0-9.0); Specific Gravity - Urine 1.015 (1.005-1.025)
[2025-09-23 10:32] LABS: MANUAL DIFF FLAG NO
[2025-09-23 10:51] LABS: Hematocrit 40.5 % (37.0-47.0); Hemoglobin 12.9 g/dl (12.0-16.0); Imm Gran Abs Auto 0.02 X10*3/uL (0.00-0.03); Imm Gran Pct Auto 0.3 % (0.0-0.4); Lymphocytes Absolute Auto 2.9 X10*3/uL (1.2-4.9); Mean Corpuscular HGB Conc 31.9 g/dl (31.0-35.0); Mean Corpuscular Hemoglobin 28.2 pg (27.0-33.0); Mean Corpuscular Volume 88.4 fL (80.0-98.0); NRBC Abs Auto 0.000 X10*3/uL (0.0-0.012); NRBC Pct Auto 0.0 /100WBC (0.0-0.2); Platelet Count 307 X10*3/uL (160-400); Red Blood Count 4.58 X10*6/uL (4.20-5.50); White Blood Count 7.6 X10*3/uL (4.8-10.8)
[2025-09-23 11:24] LABS: Alanine Aminotransferase 21 U/L (0-31); Albumin Level 4.5 g/dL (3.5-5.0); Alkaline Phosphatase 66 U/L (39-117); Anion Gap 13 (12-20); Aspartate Amino Transferase 26 U/L (5-31); Blood Urea Nitrogen 19 mg/dL (9-16); Calcium 9.8 mg/dL (8.4-10.2); Carbon Dioxide 28 mmol/L (22-29); Chloride 103 mmol/L (96-108); Cholesterol 190 mg/dL (<200); Estimated Glomerular Filt Rate > 60; HDL Cholesterol 62 mg/dL (>40); Potassium 4.6 mmol/L (3.3-5.1); Sodium 139 mmol/L (135-145); Total Protein 7.4 g/dL (6.5-8.0); Triglycerides 100 mg/dL (<150)
== END 2025-09-23 07:19 | disposition home or self-care (01) ==
LOC: HO.10HDL 07:18
PROVIDERS: Visit Provider Internal Medicine
DX: Z00.00 Encounter for general adult medical examination without abnormal findings (principal); E55.9 Vitamin D deficiency, unspecified; R30.0 Dysuria; E78.00 Pure hypercholesterolemia, unspecified; D64.9 Anemia, unspecified
CPT/HCPCS: 36415; 80053; 80061; 81003; 82306; 84443; 85025